=== PATIENT | male | born 1960 | race Caucasian/White ===

== ENCOUNTER → 2017-03-01 | Outpatient (CLI) | payer SELFPAY | END | disposition home or self-care (01) | LOC: LAB.O 07:42 | PROVIDERS: ATTEND Nurse Practitioner Family | DX: I48.91 Unspecified atrial fibrillation (principal) ==

== ENCOUNTER → 2017-05-09 | Outpatient (CLI) | payer SELFPAY | END | disposition home or self-care (01) | LOC: YCFC.O 08:27 | PROVIDERS: ATTEND Nurse Practitioner Family | DX: I48.91 Unspecified atrial fibrillation (principal); E78.5 Hyperlipidemia, unspecified; I10 Essential (primary) hypertension; Z12.5 Encounter for screening for malignant neoplasm of prostate; R73.01 Impaired fasting glucose ==

== ENCOUNTER 2017-08-07 12:44 | Emergency (ER) | payer SELFPAY ==
--- NOTE | 2017-08-07 13:34 | ED.PDOC ---
History of Present Illness - General Chief Complaint: Allergic Reaction Time Seen by Provider: 08/07/17 13:30 Source: patient Additional Information: 56 YEAR OLD PRESENTS WITH SWELLING OF HIS TONGUE STARTED THIS MORNING AT AROUND 8 AM HE HAS NO DIFFICULTY BREATHING OR SWALLOWING AT THIS TIME HE IS ON LISINOPRIL FOR SEVERAL YEARS' - History of Present Illness Timing/Duration: 4-6 hours Severity: moderate Improving Factors: nothing Associated Symptoms: denies symptoms Allergies/Adverse Reactions: Allergies NO KNOWN ALLERGY Allergy (Verified 02/21/16 07:11) Home Medications: Ambulatory Orders Digoxin [Lanoxin] 0.25 mg PO DAILY #0 tab 11/14/13 Hydroxyzine HCl 25 mg PO Q6H PRN #30 tab 02/21/16 Aspirin [(None)] 325 mg PO DAILY 08/07/17 Lisinopril 10 mg PO QAM 08/07/17 Methylprednisolone [Medrol Dose Tima] 4 mg PO DAILY@0700 #24 tab 08/07/17 amLODIPine BESYLATE [Norvasc] 5 mg PO QAM #30 tab 08/07/17 Review of Systems - Review of Systems Constitutional: States: no symptoms reported, see HPI EENTM: States: no symptoms reported Respiratory: States: no symptoms reported Cardiology: States: no symptoms reported Gastrointestinal/Abdominal: States: no symptoms reported Genitourinary: States: no symptoms reported Musculoskeletal: States: no symptoms reported Skin: States: no symptoms reported Neurological: States: no symptoms reported, emotional problems Endocrine: States: no symptoms reported Hematologic/Lymphatic: States: no symptoms reported All other Systems: Reviewed and Negative Past Medical History (General) - Patient Medical History Hx Seizures: No Hx Stroke: No Hx Dementia: No Hx Asthma: Yes Hx of COPD: No Hx Cardiac Disorders: Yes - a-fib Hx Congestive Heart Failure: Yes Hx Pacemaker: No Hx Hypertension: Yes Hx Thyroid Disease: No Hx Diabetes: No Hx Gastroesophageal Reflux: No Hx Renal Disease: No Hx Cancer: No Hx of HIV: No Hx Hepatitis C: No Hx MRSA: No - Vaccination History Hx Tetanus, Diphtheria Vaccination: No Hx Influenza Vaccination: Yes Hx Pneumococcal Vaccination: Yes - Social History Hx Tobacco Use: Yes Hx Alcohol Use: Yes Hx Substance Use: No Hx Substance Use Treatment: No Hx Depression: No Hx Physical Abuse: No Hx Emotional Abuse: No - Female History Patient : No Family Medical History - Family History Father Living Status: Age at (years of age): 34 Cause of : blunt head trama Hx Cardiac Disease: Yes Hx Family;Other: kidney disease Paternal Grandparents Living Status: Cause of : kidney disease Grandparents Living Status: Hx Cardiac Disease: Yes Mother Family History: Unknown Living Status: Still Living Hx Cardiac Disease: Yes Physical Exam - Physical Exam General Appearance: Alert, Obvious distress Eye Exam: bilateral normal Ears, Nose, Throat: hearing grossly normal, normal ENT inspection - HE HAS SIGNIFICANT SWELLING OF THE TONGUE BUT ABLE TO TALK NO OBVIOUS AIRWAY COMPROMISE AT THIS TIME Neck: non-tender, full range of motion, supple, normal inspection Respiratory: chest non-tender, lungs clear, normal breath sounds, no respiratory distress, no accessory muscle use Cardiovascular/Chest: normal peripheral pulses, regular rate, rhythm, no edema, no gallop, no JVD, no murmur Peripheral Pulses: radial,right: 2+, radial,left: 2+, femoral,right: 2+, femoral ,left: 2+ Gastrointestinal/Abdominal: normal bowel sounds, non tender, soft, no organomegaly, no pulsatile mass Progress - Progress Progress: 08/07/17 16:25 HE IS FEELING MUCH BETTER WANTS TO GO HOME WILL DC HOME SUGGEST TO STOP LISINOPRIL INSTEAD WILL GIVE NORVASC 10 MG PO Q DAY Departure - Departure Clinical Impression: Angioedema Time of Disposition: 16:26 Disposition: Discharge to Home or Self Care Condition: Good Departure Forms: ED Discharge - Pt. Copy, Patient Portal Self Enrollment Instructions: DI for Allergic Rhinitis Diet: resume usual diet Activity: increase activity as tolerated Referrals: Kimberlee Millan NP [Primary Care Provider] - 1-2 Weeks Prescriptions: amLODIPine BESYLATE [Norvasc] 5 mg PO QAM #30 tab Methylprednisolone [Medrol Dose Tima] 4 mg PO DAILY@0700 #24 tab Home Medications: Ambulatory Orders Digoxin [Lanoxin] 0.25 mg PO DAILY #0 tab 11/14/13 Hydroxyzine HCl 25 mg PO Q6H PRN #30 tab 02/21/16 Aspirin [(None)] 325 mg PO DAILY 08/07/17 Lisinopril 10 mg PO QAM 08/07/17 Methylprednisolone [Medrol Dose Tima] 4 mg PO DAILY@0700 #24 tab 08/07/17 amLODIPine BESYLATE [Norvasc] 5 mg PO QAM #30 tab 08/07/17
[2017-08-07] MEDS ORDERED: diphenhydrAMINE HCL 50 MG/ML VIAL IV ONE (13:37)
[2017-08-07] MEDS ORDERED: EPINEPHrine HCL AMP 1 MG/ML AMP SUBCU ONE (13:37)
[2017-08-07] MEDS ORDERED: methylPREDNISolone SODIUM SUC 125 MG/2 ML VIAL IV ONE (13:37)
[2017-08-07] MEDS ORDERED: FAMOTIDINE IV PREMIX 20 MG in PREMIX BAG 1 BAG IVPB ONE (13:37)
[2017-08-07] MEDS ORDERED: FAMOTIDINE IV PREMIX 50 ML IVPB ONE (13:45)
[2017-08-07 16:52] VITALS: BP 154/113; O2SAT 96
[2017-08-07 16:53] VITALS: TEMP 97.5
== END 2017-08-07 16:53 | disposition home or self-care (01) ==
LOC: ER 12:44
DX: T78.3XXA Angioneurotic edema, initial encounter (principal); I48.91 Unspecified atrial fibrillation; I11.0 Hypertensive heart disease with heart failure; I50.9 Heart failure, unspecified; Z87.891 Personal history of nicotine dependence; Z79.899 Other long term (current) drug therapy
CPT/HCPCS: J1200; J2930; J3490

== ENCOUNTER 2017-08-26 10:37 | Emergency (ER) | payer SELFPAY ==
--- NOTE | 2017-08-26 11:11 | ED.PDOC ---
History of Present Illness - General Chief Complaint: Respiratory Problem Stated Complaint: short of breath Time Seen by Provider: 08/26/17 11:08 Source: patient, RN notes reviewed Additional Information: 57 YEAR OLD OBESE MALE WITH LONG STANDING HISTORY OF ATRIAL FIBRILLATION HYPERTENSION PRESENTS WITH PALPITATIONS CHEST PAIN UPPER ABDOMINAL DISCOMFORT ALMOST NEAR SYNCOPE THIS MORNING HE HAS NOT BEEN TAKING HIS COUMADIN DISCONTINUED ON HIS OWN LAST 1 WEEK HIS HAS BEEN HAVING ORTHOPNEA AND NOCTURNAL DYSPNEA HE IS A CHRONIC SMOKER STILL SMOKES - History of Present Illness Timing/Duration: 1 hour Severity: moderate Improving Factors: nothing, rest Worsening Factors: movement Associated Symptoms: chest pain, weakness Allergies/Adverse Reactions: Allergies NO KNOWN ALLERGY Allergy (Verified 02/21/16 07:11) Home Medications: Ambulatory Orders Digoxin [Lanoxin] 0.25 mg PO DAILY #0 tab 11/14/13 Aspirin [(None)] 325 mg PO DAILY 08/07/17 amLODIPine BESYLATE [Norvasc] 5 mg PO QAM #30 tab 08/07/17 Furosemide [Lasix] 40 mg PO DAILY 08/26/17 Review of Systems - Review of Systems Constitutional: States: weakness EENTM: States: no symptoms reported Respiratory: States: short of breath Cardiology: States: chest pain, palpitations Gastrointestinal/Abdominal: States: no symptoms reported Genitourinary: States: no symptoms reported Musculoskeletal: States: no symptoms reported Skin: States: no symptoms reported Neurological: States: no symptoms reported Endocrine: States: no symptoms reported Hematologic/Lymphatic: States: no symptoms reported Past Medical History (General) - Patient Medical History Hx Seizures: No Hx Stroke: No Hx Dementia: No Hx Asthma: Yes Hx of COPD: No Hx Cardiac Disorders: Yes - a-fib Hx Congestive Heart Failure: Yes Hx Pacemaker: No Hx Hypertension: Yes Hx Thyroid Disease: No Hx Diabetes: No Hx Gastroesophageal Reflux: No Hx Renal Disease: No Hx Cancer: No Hx of HIV: No Hx Hepatitis C: No Hx MRSA: No Surgical History: other - Vaccination History Hx Tetanus, Diphtheria Vaccination: No Hx Influenza Vaccination: Yes Hx Pneumococcal Vaccination: Yes - Social History Hx Tobacco Use: Yes Hx Alcohol Use: Yes Hx Substance Use: No Hx Substance Use Treatment: No Hx Depression: No Hx Physical Abuse: No Hx Emotional Abuse: No - Female History Patient : No Family Medical History - Family History Father Living Status: Age at (years of age): 34 Cause of : blunt head trama Hx Cardiac Disease: Yes Hx Family;Other: kidney disease Paternal Grandparents Living Status: Cause of : kidney disease Grandparents Living Status: Hx Cardiac Disease: Yes Mother Family History: Unknown Living Status: Still Living Hx Cardiac Disease: Yes Physical Exam - Physical Exam General Appearance: Alert, Comfortable, Obese Eye Exam: right normal Ears, Nose, Throat: hearing grossly normal, normal ENT inspection, normal pharynx Neck: non-tender, full range of motion, supple Respiratory: chest non-tender, lungs clear, normal breath sounds, no respiratory distress Cardiovascular/Chest: normal peripheral pulses, no murmur, irregularly irregular Peripheral Pulses: radial,right: 2+, radial,left: 2+, femoral,right: 2+, femoral ,left: 2+ Gastrointestinal/Abdominal: non tender, soft Neurologic: metal solderer II-XII nml as tested, no motor/sensory deficits, alert, normal mood/affect, oriented x 3 Skin Exam: normal color, warm/dry Departure - Departure Clinical Impression: Atrial fibrillation with RVR, Congestive heart failure Time of Disposition: 12:20 Disposition: Transfer to Hospital Condition: Fair Departure Forms: ED Discharge - Pt. Copy, Patient Portal Self Enrollment Referrals: Kimberlee Millan NP [Primary Care Provider] - 1-2 Weeks Home Medications: Ambulatory Orders Digoxin [Lanoxin] 0.25 mg PO DAILY #0 tab 11/14/13 Aspirin [(None)] 325 mg PO DAILY 08/07/17 amLODIPine BESYLATE [Norvasc] 5 mg PO QAM #30 tab 08/07/17 Furosemide [Lasix] 40 mg PO DAILY 08/26/17 Transfer to Outside Facility - Transfer Information Accepting Facility: [facility] Reason for Transfer: specialized care not available - ATRIAL FIB WITH RVR NON COMPLIANCE TROPONIN LEAK
--- NOTE | 2017-08-26 11:19 | RAD ---
EXAM DESCRIPTION: Chest,1 View CLINICAL HISTORY: shortness of breath COMPARISON: March 17, 2016 IMPRESSION: Single AP portable upright view of the chest shows continued enlargement of the cardiac silhouette with increased prominence of the pulmonary vascularity suggesting mild congestive heart failure or pulmonary vascular congestion. Lungs are hypoaerated. No acute appearing consolidation is seen. Postsurgical changes to lower thoracic and lumbar spine are noted. No obvious pleural effusion or pneumothorax is seen. Electronically signed by: Ted Mock MD 08/26/2017 11:18 AM [facility]
[2017-08-26] MEDS ORDERED: diltiaZEM DRIP 125 MG/25 ML VIAL IVPB ONE (11:46)
[2017-08-26] MEDS ORDERED: SODIUM CHLORIDE 0.9% 100ML 100 ML IVPB ONE (11:46)
[2017-08-26] MEDS: diltiaZEM DRIP 125 MG in SODIUM CHLORIDE 0.9% 100ML 100 ML IVPB SCH (11:55)
[2017-08-26 14:16] VITALS: O2SAT 96
[2017-08-26] MEDS ORDERED: ENOXAPARIN SODIUM 80 MG/0.8 ML SYG SUBCU ONE (14:34)
[2017-08-26] MEDS ORDERED: ENOXAPARIN SODIUM 40 MG/0.4 ML SYG SUBCU ONE (14:34)
[2017-08-26 15:04] VITALS: TEMP 96.5
[2017-08-27 15:41] VITALS: BP 123/94
== END 2017-08-26 15:11 | disposition short-term general hospital (02) ==
LOC: ER 10:37
DX: I48.91 Unspecified atrial fibrillation (principal); I11.0 Hypertensive heart disease with heart failure; I50.9 Heart failure, unspecified; J45.909 Unspecified asthma, uncomplicated; Z79.82 Long term (current) use of aspirin; Z79.899 Other long term (current) drug therapy; F17.200 Nicotine dependence, unspecified, uncomplicated; Z91.14 Patient's other noncompliance with medication regimen
CPT/HCPCS: 36415; 71045; 80048; 82550; 82553; 83880; 84484; 85025; 85610; 85730; 93005; J1650; J7050

== ENCOUNTER → 2017-10-26 | Outpatient (CLI) | payer OTHER | LOC: YCFC.O 08:10 | PROVIDERS: ATTEND Nurse Practitioner Family | DX: I48.91 Unspecified atrial fibrillation (principal) ==

== ENCOUNTER 2017-11-01 17:48 | Emergency (ER) | payer SELFPAY ==
[2017-11-01 18:33] VITALS: TEMP 98.2; O2SAT 96
[2017-11-01] MEDS ORDERED: ORPHENADRINE CITRATE 30 MG/ML AMP IM ONE (19:21)
[2017-11-01] MEDS ORDERED: KETOROLAC TROMETHAMINE INJ 30 MG/ML VIAL IV ONE (19:22)
--- NOTE | 2017-11-01 19:36 | ED.PDOC ---
History of Present Illness - General Chief Complaint: Upper Extremity Injury Stated Complaint: left shoulder pain radiating down arm Time Seen by Provider: 11/01/17 18:35 Source: patient, RN notes reviewed, Vital Signs reviewed - History of Present Illness Occurred: this morning Pain - Upper Extremity: moderate: Shoulder, right Method of Injury: other - excess use the day prior on boat Improving Factors: rest Worsening Factors: movement Allergies/Adverse Reactions: Allergies NO KNOWN ALLERGY Allergy (Verified 02/21/16 07:11) Home Medications: Ambulatory Orders Digoxin [Lanoxin] 0.25 mg PO DAILY #0 tab 11/14/13 Aspirin [(None)] 325 mg PO DAILY 08/07/17 amLODIPine BESYLATE [Norvasc] 5 mg PO QAM #30 tab 08/07/17 Furosemide [Lasix] 40 mg PO DAILY 08/26/17 Ketorolac Tromethamine [Toradol Tabs] 10 mg PO Q6HR PRN 5 Days #20 tab 11/01/17 Orphenadrine Citrate [Orphenadrine Citrate ER] 100 mg PO BID PRN #20 tab Review of Systems - Review of Systems Constitutional: States: no symptoms reported EENTM: States: no symptoms reported Respiratory: States: no symptoms reported. Denies: cough, orthopnea, short of breath, stridor, wheezing Cardiology: States: no symptoms reported. Denies: chest pain, edema, palpitations, syncope Gastrointestinal/Abdominal: States: no symptoms reported. Denies: abdominal pain, constipation, diarrhea, nausea, vomiting Genitourinary: States: no symptoms reported Musculoskeletal: States: joint pain, muscle pain, muscle stiffness Skin: States: no symptoms reported Neurological: States: no symptoms reported Endocrine: States: no symptoms reported Past Medical History (General) - Patient Medical History Hx Seizures: No Hx Stroke: No Hx Dementia: No Hx Asthma: Yes Hx of COPD: No Hx Cardiac Disorders: Yes - a-fib Hx Congestive Heart Failure: Yes Hx Pacemaker: No Hx Hypertension: Yes Hx Thyroid Disease: No Hx Diabetes: No Hx Gastroesophageal Reflux: No Hx Renal Disease: No Hx Cancer: No Hx of HIV: No Hx Hepatitis C: No Hx MRSA: No Surgical History: other - Vaccination History Hx Tetanus, Diphtheria Vaccination: No Hx Influenza Vaccination: Yes Hx Pneumococcal Vaccination: Yes - Social History Hx Tobacco Use: Yes Hx Alcohol Use: Yes Hx Substance Use: No Hx Substance Use Treatment: No Hx Depression: No Hx Physical Abuse: No Hx Emotional Abuse: No - Female History Patient : No Family Medical History - Family History Father Living Status: Age at (years of age): 34 Cause of : blunt head trama Hx Cardiac Disease: Yes Hx Family;Other: kidney disease Paternal Grandparents Living Status: Cause of : kidney disease Grandparents Living Status: Hx Cardiac Disease: Yes Mother Family History: Unknown Living Status: Still Living Hx Cardiac Disease: Yes Physical Exam - Physical Exam General Appearance: Alert, No apparent distress, Well Developed, Well Groomed, Well Hydrated, Well Nourished Eyes, Ears, Nose, Throat Exam: PERRL/EOMI, normal ENT inspection, TMs normal Neck: non-tender, full range of motion, supple, normal inspection, other - no bruit, no pain over vascular structures Cardiovascular/Respiratory: regular rate, rhythm, no M/R/G, normal peripheral pulses, no JVD, normal breath sounds, no respiratory distress Abdominal Exam: non-tender, no organomegaly, no hernia Back Exam: normal inspection, no CVA tenderness, no vertebral tenderness Shoulder Exam: normal inspection, limited ROM, pain, soft tissue tenderness Elbow/Forearm Exam: normal inspection, non-tender, no evidence of injury, normal ROM Wrist Exam: normal inspection, non-tender, no evidence of injury, normal ROM Hand Exam: normal inspection, non-tender, no evidence of injury, normal ROM Neuro/Tendon: normal sensation, normal motor functions - limited at shoulder due to pain, normal tendon functions - limited at shoulder due to pain Mental Status: alert, oriented x 3 Skin Exam: normal color, warm/dry Departure - Departure Clinical Impression: Sprain and strain of shoulder and upper arm Time of Disposition: 20:34 Disposition: Discharge to Home or Self Care Condition: Good Departure Forms: ED Discharge - Pt. Copy, Patient Portal Self Enrollment Instructions: DI for Arm Pain Diet: resume usual diet Activity: increase activity as tolerated Referrals: Kimberlee Millan NP [Primary Care Provider] - 1-2 Weeks Prescriptions: Ketorolac Tromethamine [Toradol Tabs] 10 mg PO Q6HR PRN 5 Days #20 tab PRN Reason: Pain Orphenadrine Citrate [Orphenadrine Citrate ER] 100 mg PO BID PRN #20 tab PRN Reason: Pain -- Moderate Home Medications: Ambulatory Orders Digoxin [Lanoxin] 0.25 mg PO DAILY #0 tab 11/14/13 Aspirin [(None)] 325 mg PO DAILY 08/07/17 amLODIPine BESYLATE [Norvasc] 5 mg PO QAM #30 tab 08/07/17 Furosemide [Lasix] 40 mg PO DAILY 08/26/17 Ketorolac Tromethamine [Toradol Tabs] 10 mg PO Q6HR PRN 5 Days #20 tab 11/01/17 Orphenadrine Citrate [Orphenadrine Citrate ER] 100 mg PO BID PRN #20 tab
--- NOTE | 2017-11-01 19:44 | RAD ---
PROCEDURE: Shoulder,Right 2 or More Views Clinical History: shoulder pain Indication: Same as above Comparison: None . Technique: 2.0 views of the right shoulder were done. Findings: There is no visualization of acute fractures or dislocations involving the bones of the right shoulder joint. There is no evidence of periosteal reactions involving the bones of the shoulder joint. The adjacent acromioclavicular joint shows mild degenerative change. The acromiohumeral distance is well-maintained . There is no evidence of rotator cuff calcific tendinitis. The visualized adjacent ribs do not show any evidence of acute bony trauma. Limited evaluation of the adjacent clavicle, scapula and the acromioclavicular joint does not show any evidence of acute bony trauma. The visualized lung robins are radiographically unremarkable. The adjacent soft tissues are radiographically unremarkable. There is no visualization of any radiopaque foreign bodies in the soft tissues. Impression: Mild degenerative changes in the right AC joint . Place of interpretation: [id number]. Electronically signed by: Basil Henriquez MD 11/01/2017 7:43 PM CDT Workstation: [id number]
[2017-11-01] MEDS ORDERED: POTASSIUM CHLORIDE 20 MEQ TAB PO ONE (20:17)
[2017-11-01] MEDS ORDERED: traMADol HCL 50 MG (ER DISP) # 6 TABS PO ONE (20:47)
[2017-11-01 20:54] VITALS: BP 174/98
== END 2017-11-01 20:58 | disposition home or self-care (01) ==
LOC: ER 17:48
DX: S43.409A Unspecified sprain of unspecified shoulder joint, initial encounter (principal); I48.91 Unspecified atrial fibrillation; I11.0 Hypertensive heart disease with heart failure; I50.9 Heart failure, unspecified; Z87.891 Personal history of nicotine dependence; Z79.82 Long term (current) use of aspirin; X50.3XXA Overexertion from repetitive movements, initial encounter; X50.1XXA Overexertion from prolonged static or awkward postures, initial encounter; Y92.89 Other specified places as the place of occurrence of the external cause
CPT/HCPCS: 36415; 73030; 80053; 82550; 82553; 84484; 85025; J1885; J2360

== ENCOUNTER → 2018-03-16 | Outpatient (CLI) | payer SELFPAY | LOC: LAB.O 01-17 08:09 | PROVIDERS: ATTEND Nurse Practitioner Family | DX: I48.91 Unspecified atrial fibrillation (principal) ==

== ENCOUNTER → 2019-02-16 | Outpatient (CLI) | payer OTHER | LOC: LAB.O 07:51 | PROVIDERS: ATTEND Nurse Practitioner Family | DX: I48.91 Unspecified atrial fibrillation (principal) ==

== ENCOUNTER → 2019-02-20 | Outpatient (CLI) | payer SELFPAY | LOC: YCFC.O 12:04 | PROVIDERS: ATTEND Nurse Practitioner Family | DX: E78.5 Hyperlipidemia, unspecified (principal); I48.91 Unspecified atrial fibrillation; I10 Essential (primary) hypertension ==

== ENCOUNTER → 2019-03-06 | Outpatient (CLI) | payer SELFPAY | LOC: YCFC.O 11:21 | PROVIDERS: ATTEND Nurse Practitioner Family | DX: I48.91 Unspecified atrial fibrillation (principal) ==

== ENCOUNTER → 2019-03-27 | Outpatient (CLI) | payer SELFPAY | LOC: LAB.O 09:22 | PROVIDERS: ATTEND Nurse Practitioner Family | DX: I48.91 Unspecified atrial fibrillation (principal) ==

== ENCOUNTER → 2019-04-27 | Outpatient (CLI) | payer SELFPAY | LOC: YCFC.O 12:46 | PROVIDERS: ATTEND Nurse Practitioner Family | DX: I48.91 Unspecified atrial fibrillation (principal) ==

== ENCOUNTER 2019-06-28 18:49 | Inpatient (IN) | payer SELFPAY ==
--- NOTE | 2019-06-28 19:07 | ED.PDOC ---
History of Present Illness - General Chief Complaint: Neuro Symptoms/Deficits Stated Complaint: Dizziness Time Seen by Provider: 06/28/19 19:04 Source: patient Exam Limitations: no limitations - History of Present Illness Initial Comments: 58 yo M with PMH sig for CHF, a fib, HTN who presents for SOB, [place], orthopnea, BLE edema onset yesterday, worsening today. Reports compliance with lasix, diet, digoxin. Reports associated falls 2/2 lightheadedness when standing. Cp since this afternoon, throbbing, midsternal, constant, no radiation. +chornic cough, pt is smoker. Denies f/c, congestion, abd pain, n/v/d, urinary sx, weakness, numbness, CHRISTIAN, change in vision, slurred speech. Allergies/Adverse Reactions: Allergies NO KNOWN ALLERGY Allergy (Verified 02/21/16 07:11) Home Medications: Ambulatory Orders Digoxin [Lanoxin] 0.25 mg PO DAILY #0 tab 11/14/13 Aspirin [(None)] 325 mg PO DAILY 08/07/17 amLODIPine BESYLATE [Norvasc] 5 mg PO QAM #30 tab 08/07/17 Furosemide [Lasix] 40 mg PO DAILY 08/26/17 Ketorolac Tromethamine [Toradol Tabs] 10 mg PO Q6HR PRN 5 Days #20 tab 11/01/17 Orphenadrine Citrate [Orphenadrine Citrate ER] 100 mg PO BID PRN #20 tab 11/01/17 Review of Systems - Review of Systems Constitutional: Denies: chills, fever EENTM: Denies: ear pain, nose congestion Respiratory: States: cough - chronic, orthopnea, short of breath Cardiology: States: chest pain, edema. Denies: palpitations, syncope Gastrointestinal/Abdominal: Denies: abdominal pain, diarrhea, nausea, vomiting Genitourinary: Denies: dysuria, frequency, hematuria Musculoskeletal: Denies: back pain, neck pain Skin: Denies: lesions, rash Neurological: States: other - lightheadedness. Denies: headache, numbness, weakness Past Medical History (General) - Patient Medical History Hx Seizures: No Hx Stroke: No Hx Dementia: No Hx Asthma: Yes Hx of COPD: No Hx Cardiac Disorders: Yes - a-fib Hx Congestive Heart Failure: Yes Hx Pacemaker: No Hx Hypertension: Yes Hx Thyroid Disease: No Hx Diabetes: No Hx Gastroesophageal Reflux: No Hx Renal Disease: No Hx Cancer: No Hx of HIV: No Hx Hepatitis C: No Hx MRSA: No - Vaccination History Hx Tetanus, Diphtheria Vaccination: No Hx Influenza Vaccination: Yes Hx Pneumococcal Vaccination: Yes - Social History Hx Tobacco Use: Yes Hx Alcohol Use: Yes Hx Substance Use: No Hx Substance Use Treatment: No Hx Depression: No Hx Physical Abuse: No Hx Emotional Abuse: No - Female History Patient : No Family Medical History - Family History Father Living Status: Age at (years of age): 34 Cause of : blunt head trama Hx Cardiac Disease: Yes Hx Family;Other: kidney disease Paternal Grandparents Living Status: Cause of : kidney disease Grandparents Living Status: Hx Cardiac Disease: Yes Mother Family History: Unknown Living Status: Still Living Hx Cardiac Disease: Yes Physical Exam - Physical Exam General Appearance: Alert, Comfortable, No apparent distress, Obese, Well Developed, Well Nourished Eye Exam: bilateral normal Ears, Nose, Throat: hearing grossly normal, normal ENT inspection Neck: non-tender, full range of motion, supple Respiratory: chest non-tender, no respiratory distress, no accessory muscle use, decreased breath sounds - bases Cardiovascular/Chest: normal peripheral pulses, no gallop, no JVD, no murmur, irregularly irregular, other - rate wnl Peripheral Pulses: radial,right: 2+, radial,left: 2+ Gastrointestinal/Abdominal: non tender, soft, no organomegaly, no pulsatile mass Extremity: normal range of motion, normal capillary refill, pedal edema - 2+ pitting edema, symmetric BLE Neurologic: no motor/sensory deficits, alert, normal mood/affect, oriented x 3 Skin Exam: normal color, warm/dry Progress - Progress Progress: 06/28/19 20:16 Discussed with Yael midlevel for hospitalist, requests repeat troponin, if wnl, will accept for admission. 06/28/19 22:10 Pt stood up to urinate and requested family step out, during that time pt fell onto his L side, complaining of lower back pain at this time with abrasion noted to L forearm, denies hitting his head. Pt is unsure why he fell, there was noted to be something wet on the floor, ?urine, pt denied any sx prior to the fall. Good urine outpt since lasix dose. Discussed with Yael and updated on repeat troponin and fall, L spine pending, accepts pt for admission and will follow up on CT. 06/28/19 22:16 Discussed with pt results and need for admission, agrees with plan, all questions and concerns addressed. Raven White MD Emergency Medicine Physician Billing Number [id number] - Results/Orders Results/Orders: 06/28/19 19:15 EKG STAT 06/28/19 22:04 Lumbar Spine [CT] Stat 06/28/19 22:14 ED Intent to Admit Routine Laboratory Results - last 24 hr 06/28/19 06/28/19 06/28/19 19:17 19:17 19:17 WBC 10.7 RBC 5.94 Hgb 17.8 Hct 54.2 H MCV 91.3 MCH 30.0 MCHC 32.9 L RDW 15.0 H Plt Count 184 MPV 10.4 Absolute Neuts (auto) 7.90 H Absolute Lymphs (auto) 1.40 Absolute Monos (auto) 0.60 Absolute Eos (auto) 0.60 H Absolute Basos (auto) 0.10 Neutrophils % 74.2 Lymphocytes % 13.5 L Monocytes % 5.4 Eosinophils % 6.0 H Basophils % 0.9 PT INR PTT (SP) Sodium 140 Potassium 3.3 L Chloride 98 L Carbon Dioxide 30 Anion Gap 15.3 BUN 17 Creatinine 1.19 BUN/Creatinine Ratio 14.3 Random Glucose 174 H Serum Osmolality 285.1 Calcium 9.3 Phosphorus Magnesium Total Bilirubin 0.4 AST 19 ALT 14 Alkaline Phosphatase 75 Troponin I 0.05 B-Natriuretic Peptide Serum Total Protein 7.2 Albumin 3.6 Globulin 3.6 H Albumin/Globulin Ratio 1.0 L Digoxin 06/28/19 06/28/19 06/28/19 19:17 19:17 19:17 WBC RBC Hgb Hct MCV MCH MCHC RDW Plt Count MPV Absolute Neuts (auto) Absolute Lymphs (auto) Absolute Monos (auto) Absolute Eos (auto) Absolute Basos (auto) Neutrophils % Lymphocytes % Monocytes % Eosinophils % Basophils % PT 14.0 H INR 1.40 H PTT (SP) 26.8 Sodium Potassium Chloride Carbon Dioxide Anion Gap BUN Creatinine BUN/Creatinine Ratio Random Glucose Serum Osmolality Calcium Phosphorus 1.9 L* Magnesium 1.7 L Total Bilirubin AST ALT Alkaline Phosphatase Troponin I B-Natriuretic Peptide 235.0 H* Serum Total Protein Albumin Globulin Albumin/Globulin Ratio Digoxin 0.8 L 06/28/19 21:27 WBC RBC Hgb Hct MCV MCH MCHC RDW Plt Count MPV Absolute Neuts (auto) Absolute Lymphs (auto) Absolute Monos (auto) Absolute Eos (auto) Absolute Basos (auto) Neutrophils % Lymphocytes % Monocytes % Eosinophils % Basophils % PT INR PTT (SP) Sodium Potassium Chloride Carbon Dioxide Anion Gap BUN Creatinine BUN/Creatinine Ratio Random Glucose Serum Osmolality Calcium Phosphorus Magnesium Total Bilirubin AST ALT Alkaline Phosphatase Troponin I 0.05 B-Natriuretic Peptide Serum Total Protein Albumin Globulin Albumin/Globulin Ratio Digoxin CXR: EXAM DESCRIPTION: XR Chest, 2 Views CLINICAL HISTORY: 58 years Male sob TECHNIQUE: Two views of the chest. COMPARISON: Comparison is made with the prior exam dated 08/26/2017 FINDINGS: The lungs are clear without focal consolidation, effusion, or pneumothorax. Mild elevation of the right hemidiaphragm. Mild cardiomegaly without evidence of congestive failure. Postsurgical changes in the lower thoracic spine. No acute fracture. IMPRESSION : No acute cardiopulmonary abnormalities. Mild cardiomegaly. Electronically signed by: Reina Willis MD 06/28/2019 8:00 PM LONG TERM CARE SOCIAL WORKER Workstation: [id number] CT head: PROCEDURE: CT Head CLINICAL HISTORY: 58 years Male fall, dizziness TECHNIQUE: Contiguous axial CT images obtained through the brain without IV contrast. This CT exam was performed according to our departmental dose-optimization program, which includes one or more of the following dose reduction techniques: automated exposure control, adjustment of the mA and/or kV according to patient size, and/or use of iterative reconstruction technique. COMPARISON: No prior exams provided for comparison. FINDINGS: There is no acute skull fracture, intracranial hemorrhage, extraaxial collection, or acute transcortical infarction. Scattered foci of low attenuation within the periventricular and subcortical white matter are nonspecific but compatible with chronic microvascular disease. The ventricles are normal in size and contour without mass effect or midline shift. Mild bilateral ethmoid sinusitis. The remainder of the paranasal sinuses and mastoid air cells are clear. Intraorbital structures intact bilaterally. IMPRESSION: No acute intracranial injury. Mild chronic microvascular changes. Mild bilateral ethmoid sinusitis. Electronically signed by: Reina Willis MD 06/28/2019 7:59 PM LONG TERM CARE SOCIAL WORKER L spine XR: EXAM DESCRIPTION: Lumbar Spine 3 Views CLINICAL HISTORY: fall COMPARISON: None FINDINGS: 3 view(s) submitted. The bones are very osteopenic which limits detail. Paraspinal hardware appears intact. There is height loss of multiple lower thoracic vertebral bodies but detail is very limited. IMPRESSION: CT would be required to detect acute fractures as the bones are severely osteopenic. Alignment is normal. There are degenerative changes. Electronically signed by: Jarett Ocampochase 06/28/2019 9:52 PM LONG TERM CARE SOCIAL WORKER L spine CT: pending, Yael will follow up Vital Signs - 24 hr 06/28/19 06/28/19 06/28/19 19:06 19:07 20:42 Temperature 96.3 F L 97.1 F L Pulse Rate 68 Pulse Rate [ 68 68 70 brachial] Respiratory 18 18 18 Rate Blood Pressure 185/113 165/112 [Right Arm] O2 Sat by Pulse 94 L 97 Oximetry 06/28/19 06/28/19 21:00 22:00 Temperature 97.9 F Pulse Rate Pulse Rate [ 66 65 brachial] Respiratory 20 20 Rate Blood Pressure 166/109 169/116 [Right Arm] O2 Sat by Pulse 96 99 Oximetry - EKG/XRAY/CT EKG: Atrial, Fibrillation, nonspecific ST T wave Chg Comments: PVC or aberrantly conducted complexes, LVH Departure - Departure Clinical Impression: Lightheadedness, Abrasion, Subtherapeutic international normalized ratio (INR) Volume overload Qualifiers: Hypervolemia type: unspecified Qualified Code(s): E87.70 - Fluid overload, unspecified Fall Qualifiers: Encounter type: initial encounter Qualified Code(s): W19.XXXA - Unspecified fall, initial encounter Low back pain Qualifiers: Chronicity: acute Back pain laterality: bilateral Sciatica presence: without sciatica Qualified Code(s): M54.5 - Low back pain Time of Disposition: 22:15 Disposition: Admit Patient Condition: Fair Referrals: Mendoza Ma MD [Primary Care Provider] - 1-2 Weeks Home Medications: Ambulatory Orders Digoxin [Lanoxin] 0.25 mg PO DAILY #0 tab 11/14/13 Aspirin [(None)] 325 mg PO DAILY 08/07/17 amLODIPine BESYLATE [Norvasc] 5 mg PO QAM #30 tab 08/07/17 Furosemide [Lasix] 40 mg PO DAILY 08/26/17 Ketorolac Tromethamine [Toradol Tabs] 10 mg PO Q6HR PRN 5 Days #20 tab 11/01/17 Orphenadrine Citrate [Orphenadrine Citrate ER] 100 mg PO BID PRN #20 tab 11/01/17
[2019-06-28] MEDS ORDERED: FUROSEMIDE INJ 40 MG/4 ML VIAL IV ONE (19:13)
--- NOTE | 2019-06-28 20:04 | RAD ---
EXAM DESCRIPTION: XR Chest, 2 Views CLINICAL HISTORY: 58 years Male sob TECHNIQUE: Two views of the chest. COMPARISON: Comparison is made with the prior exam dated 08/26/2017 FINDINGS: The lungs are clear without focal consolidation, effusion, or pneumothorax. Mild elevation of the right hemidiaphragm. Mild cardiomegaly without evidence of congestive failure. Postsurgical changes in the lower thoracic spine. No acute fracture. IMPRESSION: No acute cardiopulmonary abnormalities. Mild cardiomegaly. Electronically signed by: Reina Willis MD 06/28/2019 8:00 PM SECURITY ASSISTANT
--- NOTE | 2019-06-28 20:04 | CT ---
PROCEDURE: CT Head CLINICAL HISTORY: 58 years Male fall, dizziness TECHNIQUE: Contiguous axial CT images obtained through the brain without IV contrast. This CT exam was performed according to our departmental dose-optimization program, which includes one or more of the following dose reduction techniques: automated exposure control, adjustment of the mA and/or kV according to patient size, and/or use of iterative reconstruction technique. COMPARISON: No prior exams provided for comparison. FINDINGS: There is no acute skull fracture, intracranial hemorrhage, extraaxial collection, or acute transcortical infarction. Scattered foci of low attenuation within the periventricular and subcortical white matter are nonspecific but compatible with chronic microvascular disease. The ventricles are normal in size and contour without mass effect or midline shift. Mild bilateral ethmoid sinusitis. The remainder of the paranasal sinuses and mastoid air cells are clear. Intraorbital structures intact bilaterally. IMPRESSION: No acute intracranial injury. Mild chronic microvascular changes. Mild bilateral ethmoid sinusitis. Electronically signed by: Reina Willis MD 06/28/2019 7:59 PM [employer] SET UP OPERATOR
[2019-06-28] MEDS ORDERED: POTASSIUM PHOSPHATE 500 MG TAB PO ONE (20:25)
[2019-06-28] MEDS ORDERED: TETANUS,DIPHTHERIA,PERTUSSIS 1 EA SYG IM ONE (20:33)
[2019-06-28] MEDS ORDERED: KETOROLAC TROMETHAMINE INJ 30 MG/ML VIAL IV ONE (21:52)
--- NOTE | 2019-06-28 21:53 | RAD ---
EXAM DESCRIPTION: Lumbar Spine 3 Views CLINICAL HISTORY: fall COMPARISON: None FINDINGS: 3 view(s) submitted. The bones are very osteopenic which limits detail. Paraspinal hardware appears intact. There is height loss of multiple lower thoracic vertebral bodies but detail is very limited. IMPRESSION: CT would be required to detect acute fractures as the bones are severely osteopenic. Alignment is normal. There are degenerative changes. Electronically signed by: Jarett Degroot 06/28/2019 9:52 PM [facility]
[2019-06-28] MEDS ORDERED: ASPIRIN (CHEWABLE) 81 MG TAB PO ONE (22:14)
--- NOTE | 2019-06-28 23:04 | CT ---
EXAM DESCRIPTION: CT LUMBAR SPINE WITHOUT CONTRAST CLINICAL HISTORY: 58 years Male pain, fall COMPARISON: Lumbar spine radiograph of the same day TECHNIQUE: Multiplanar imaging through the lumbar spine without contrast. This exam was performed according to our departmental dose-optimization program, which includes automated exposure control, adjustment of the mA and/or kV according to patient size and/or use of iterative reconstruction technique. DLP: 744 mGy*cm FINDINGS: No acute fracture. Remote fracture deformity of the L1 vertebral body with minimal retropulsion and approximately 50-60% vertebral body height loss. Prior posterior instrumented fusion from T11 to L3. Small retrolisthesis of L5 on S1. L5-S1 disc space narrowing and vacuum phenomenon. Diffuse osteopenia. Lower lumbar facet arthropathy. Paraspinal soft tissues are within normal limits. Visualized abdomen demonstrates no acute abnormality. Vascular calcifications. Nonobstructive bilateral renal stones. IMPRESSION: No acute lumbar spine fracture or subluxation. Remote L1 compression fracture with prior T11-L3 posterior instrumented fusion. Diffuse osteopenia and lower lumbar degenerative changes. Electronically signed by: Antony Kline DO 06/28/2019 11:01 PM [facility]
[2019-06-28] MEDS ORDERED: NITROGLYCERIN 0.4 MG 25 EA TAB SL ONE ×2 (23:13)
--- NOTE | 2019-06-28 23:53 | HP ---
SUPERVISING PHYSICIAN: Herb Roland M.D. CHIEF COMPLAINT: Fall and dizziness. HISTORY OF PRESENT ILLNESS: This is a 58 year-old male patient who reported that he had multiple falls on the day he came to the Emergency Room. He actually fell outside his house, one time in the bathroom, another time on his porch, and then in the Emergency Room. There were no obvious injuries. He did not lose consciousness. He did complain of feeling dizzy and light-headed and he has never had these symptoms in the past. Yesterday, he also had some increase in his lower leg edema. He does have a history of congestive heart failure as well as atrial fibrillation. He also has a history of poor compliance with his digoxin and his Coumadin. Initially he felt like he had some chest pain but he felt that that was more shortness of breath. It did not radiate or did not worsen with exertion. In the Emergency Room, his initial vital signs showed temperature 96.3, heart rate 68, blood pressure 185/113, respiratory rate 18, O2 saturation 94% on room air. His EKG showed atrial fibrillation with a controlled rate. Laboratory studies were done. He had a CBC that was basically unremarkable. His INR was subtherapeutic at 1.4. He is on Coumadin. Sodium 140, potassium 3.3, chloride 98, glucose 174, phosphorus 1.9, magnesium 1.7. BNP was 235. His initial troponin was 0.05. He had a followup troponin that was 0.05. Chest x-ray showed no acute cardiopulmonary abnormalities with mild cardiomegaly. Head CT showed no acute intracranial injury. Lumbar spine x-ray recommended a CT to detect acute fractures due to his bones being severely osteopenic. Lumbar spine CT showed no acute lumbar spine fracture or subluxation, just a remote L1 compression fracture with prior T11-L3 posterior instrumented fusion with diffuse osteopenia and lower lumbar degenerative changes. I was called for hospital admission. PAST MEDICAL HISTORY: 1. Hyperlipidemia. 2. Hypertension. 3. Atrial fibrillation. 4. Chronic obstructive pulmonary disease. 5. Degenerative joint disease. 6. Chronic low back pain. 7. Impaired fasting glucose. 8. Congestive heart failure of unknown etiology. There is no current echocardiogram to review. PAST SURGICAL HISTORY: 1. L4 reconstruction surgery. 2. Tonsillectomy. 3. Left hand surgery. OUTPATIENT MEDICATIONS: 1. Albuterol HFA. 2. Digoxin. 3. Furosemide. 4. Metoprolol. 5. Warfarin. 6. Potassium. ALLERGIES: ADVERSE REACTION TO AMOXICILLIN WHICH CAUSES DIARRHEA. HE HAS AN ALLERGY TO LISINOPRIL IT CAUSES ANGIOEDEMA. 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 He is . He lives alone. He has 1 child. He smokes approximately 1/2 pack of cigarettes daily. He has a previous history of excessive alcohol intake but he has stopped in the last few months. He denies any illicit drug use. REVIEW OF SYSTEMS: GENERAL: Denies fever, fatigue or weight changes. HEENT: Negative for sinus symptoms, ear pain, vision changes or sore throat. RESPIRATORY: Positive for coughing and shortness of breath. Negative for wheezing. CARDIAC: Positive for palpitations. Negative for chest pain or tachycardia. GASTROINTESTINAL: Negative for abdominal pain, nausea, vomiting, diarrhea or constipation. GENITOURINARY: Negative for hematuria, dysuria or polyuria. MUSCULOSKELETAL: Positive for chronic back pain. Negative for neck pain, arthralgias or myalgias. SKIN: Negative for lesions or rashes. NEUROLOGIC: Positive for dizziness and light-headedness. Negative for headaches, seizures, numbness or stroke-like symptoms. PHYSICAL EXAMINATION: VITAL SIGNS: Temperature 98, heart rate 77, blood pressure 191/82, respiratory rate 18, O2 saturation 96% on room air. GENERAL: This is a 58 year-old male patient who is sitting up on the side of his bed. He is in no acute distress. HEENT: Normocephalic and atraumatic. Pupils are equal and reactive. Oropharynx is clear. NECK: Supple without mass. There is no discernible jugular venous distention. RESPIRATORY: A few scattered crackles throughout. Otherwise clear to auscultation. CHEST: There is equal rise and fall of the chest with inspiration and expiration. CARDIOVASCULAR: Regular rate, irregular rhythm. Atrial fibrillation on the potline monitor. GASTROINTESTINAL: Abdomen is soft, nondistended, non-tender. Bowel sounds are positive. EXTREMITIES: No cyanosis or clubbing. He does have +1 to 2 pitting edema to the lower extremities. Bilateral pedal pulses are palpable at +2. NEUROLOGIC: He is awake, alert and oriented times three. Cranial nerves II-XII are grossly intact as tested. SKIN: Warm and dry. ASSESSMENT: 1. Multiple same level falls with no loss of consciousness or obvious injury, unknown etiology. 2. Bradycardia. He is on digoxin and beta maite that may have contributed to #1. 3. Congestive heart failure of unknown etiology with mild exacerbation. His BNP is 235. He is on a beta maite, Lasix and digoxin. 4. Chronic obstructive pulmonary disease without exacerbation in a current smoker. 5. Atrial fibrillation, controlled rate on digoxin and beta maite as well as Coumadin. 6. Compression fracture of L1 that most likely is an older fracture. He does have extensive back surgery. 7. Renal insufficiency, most likely prerenal azotemia. 8. Electrolyte imbalance, including hypomagnesemia, hypokalemia and hypophosphatemia. 9. Tobacco abuse. 10. Subtherapeutic INR with noncompliance. 11. Hypertension. 12. Chronic low back pain. 13. Degenerative joint disease. 14. Severe osteopenia. PLAN: The patient has been placed in observation. Will continue to monitor his heart rate closely as he does have an occasional bradycardic episode as low as 39. It may be due to his taking both digoxin and a beta maite, although his digoxin level is subtherapeutic. At this point will continue on his beta maite but I will discontinue his digoxin, especially since he is fairly noncompliant anyway. He needs to be on an ARB so I will start Diovan, especially since his blood pressure is up. He has received several doses of IV Lasix and I will put him on his p.o. Lasix tomorrow. Will also have an echocardiogram done today. We will done tobacco cessation. I have encouraged the patient to stop smoking. His breathing treatments are scheduled and p.r.n. He has been started on Lovenox for deep venous thrombosis prophylaxis and I will restart his Coumadin today. I will check his INR tomorrow. We can discontinue his Lovenox as soon as he is therapeutic. His home medications will be restarted as soon as they are verified. I have already gotten him a followup appointment with Dr. Ma after discharge since he will be off his digoxin and he will need to be monitored closely with his beta maite and his new prescription of Diovan. Will continue to monitor closely and follow as needed. #[id number] [facility]
[2019-06-28] MEDS ORDERED: ACETAMINOPHEN 325 MG TAB PO PRN (23:55)
[2019-06-28] MEDS ORDERED: ONDANSETRON INJ 4 MG/2 ML VIAL IV PRN (23:55)
[2019-06-28] MEDS ORDERED: ALBUTEROL SULFATE 2.5 MG/3 ML VIAL NEB PRN (23:55)
[2019-06-28] MEDS ORDERED: SODIUM CHLORIDE 0.9% (FLUSH) 10 ML SYG IV PRN (23:55)
[2019-06-28] MEDS ORDERED: NITROGLYCERIN 0.4 MG 25 EA TAB SL PRN (23:55)
[2019-06-29] MEDS ORDERED: ENOXAPARIN SODIUM 40 MG/0.4 ML SYG SUBCU ONE (00:07)
[2019-06-29] MEDS ORDERED: MAGNESIUM SULFATE PREMIX 2GM 2 GM in PREMIX BAG 1 BAG IVPB ONE (00:11)
[2019-06-29] MEDS ORDERED: MAGNESIUM SULFATE PREMIX 2GM 50 ML IVPB ONE (00:48)
[2019-06-29] MEDS: IV SET AND CAP CHANGE INJ INJ SCH (00:49)
[2019-06-29] MEDS: ALBUTEROL SULFATE 2.5 MG/3 ML VIAL NEB SCH ×4 (09:01→20:15)
[2019-06-29] MEDS ORDERED: POTASSIUM CHLORIDE 20 MEQ TAB PO ONE (09:18)
[2019-06-29] MEDS ORDERED: METOPROLOL TARTRATE 25 MG TAB ONE (09:31)
[2019-06-29] MEDS ORDERED: DIGOXIN 0.125 MG TAB ONE (09:34)
[2019-06-29] MEDS: diphenhydrAMINE HCL 25 MG CAP PO SCH (09:56)
[2019-06-29] MEDS: FUROSEMIDE INJ 40 MG/4 ML VIAL IV SCH (09:57)
[2019-06-29] MEDS: SODIUM CHLORIDE 0.9% (FLUSH) 10 ML SYG IV SCH ×2 (09:57→20:53)
[2019-06-29] MEDS: METOPROLOL TARTRATE 50 MG TAB PO SCH ×2 (09:59→20:48)
[2019-06-29] MEDS ORDERED: LISINOPRIL 10 MG TAB PO SCH (12:00)
[2019-06-29] MEDS ORDERED: DIGOXIN 0.125 MG TAB PO SCH (12:00)
[2019-06-29] MEDS: VALSARTAN 80 MG TAB PO SCH (13:08)
[2019-06-29] MEDS: WARFARIN SODIUM 5 MG TAB PO SCH (13:08)
[2019-06-29] MEDS: ENOXAPARIN SODIUM 40 MG/0.4 ML SYG SUBCU SCH (20:48)
[2019-06-29] MEDS: ACETAMINOPHEN W/ COD #4 TAB 1EA TAB PO PRN (21:06)
[2019-06-30] MEDS ORDERED: cloNIDine HCL 0.1 MG TAB PO ONE (02:52)
[2019-06-30] MEDS: ACETAMINOPHEN W/ COD #4 TAB 1EA TAB PO PRN ×2 (05:44→20:19)
[2019-06-30] MEDS: METOPROLOL TARTRATE 50 MG TAB PO SCH ×2 (08:00→20:19)
[2019-06-30] MEDS: VALSARTAN 80 MG TAB PO SCH (08:00)
[2019-06-30] MEDS: diphenhydrAMINE HCL 25 MG CAP PO SCH (08:08)
[2019-06-30] MEDS: SODIUM CHLORIDE 0.9% (FLUSH) 10 ML SYG IV SCH ×2 (08:08→20:21)
[2019-06-30] MEDS: ALBUTEROL SULFATE 2.5 MG/3 ML VIAL NEB SCH ×4 (08:34→20:35)
[2019-06-30] MEDS: FUROSEMIDE INJ 40 MG/4 ML VIAL IV SCH (08:45)
[2019-06-30] MEDS ORDERED: VALSARTAN 80 MG TAB PO ONE (09:30)
[2019-06-30] MEDS ORDERED: WARFARIN SODIUM 2 MG TAB PO ONE (12:00)
[2019-06-30] MEDS: WARFARIN SODIUM 5 MG TAB PO SCH (12:17)
--- NOTE | 2019-06-30 15:32 | RAD ---
EXAM: XR Right Knee, 1 or 2 Views CLINICAL HISTORY: The patient is 58 years old and is Male; fall TECHNIQUE: Frontal and/or lateral views of the right knee. COMPARISON: No relevant prior studies available. FINDINGS: BONES/JOINTS: Minimal medial and lateral compartment joint space narrowing is present. Hypertrophy of the intercondylar eminence is noted. There is no joint effusion. No acute fracture. No dislocation. SOFT TISSUES: Unremarkable. IMPRESSION: Mild degenerative change of the right knee. Electronically signed by: Mojgan Curry MD 06/30/2019 3:31 PM [facility]
--- NOTE | 2019-06-30 15:32 | RAD ---
: 1960. Technique: Two views of the left ankle. Clinical history: fall. Findings: There is mild soft tissue swelling. There is cortical disruption of the dorsal navicular bone on the lateral view. Suggesting a potential avulsion injury. There is moderate traumatic remodeling of the distal left fibula noted. Normal articulations. Normal ankle mortise. No destructive lesion. Small dorsal and plantar heel spurs. Impression: 1. Possible acute avulsion from the dorsal navicular. Correlate with any point tenderness. Electronically signed by: Philippe Robb MD 06/30/2019 3:30 PM [facility]
[2019-06-30] MEDS: ENOXAPARIN SODIUM 40 MG/0.4 ML SYG SUBCU SCH (20:20)
--- NOTE | 2019-06-30 21:35 | PN ---
DATE: 06/30/19 SUPERVISING PHYSICIAN: Herb Roland M.D. SUBJECTIVE: The patient is sitting on the side of the bed. He complains of his right lateral knee hurting as well as his left ankle hurting from his fall yesterday while in the Emergency Room. He has had no dizziness or syncopal episodes while in the hospital, but he did say he fell awkwardly yesterday. He also complains that he has a wart on his right posterior upper arm that continues to get caught on things and bleeds, and would like it taken off. I explained that we would let his primary care physician do that. He does feel very weak but has had no syncopal or dizzy spells since being in the hospital. He denies any chest pain, nausea, vomiting or diarrhea. He does have to use a walker to get around due to the pain in his right knee and left ankle. OBJECTIVE: VITAL SIGNS: Temperature 97.8, heart rate 64. It has dropped as low as 58 and has been as high as 88. Blood pressure 164/94. Last night it was 197/140 and after receiving Clonidine it was 170/99. Respiratory rate is 17, O2 saturation is 95% on room air. RESPIRATORY: Essentially clear to auscultation bilaterally. CARDIAC: Regular rate, irregular rhythm. Atrial fibrillation on the cardiac cath technologist. GASTROINTESTINAL: Abdomen is soft, nondistended, non-tender. Bowel sounds are positive. EXTREMITIES: His right posterior upper arm has a wart-like lesion that has partially pulled off. There is a scab where it has been bleeding. There are no signs or symptoms of infection. His right lateral knee is tender to palpation with a very mild ecchymotic area and minimal swelling. There is no swelling to his left ankle but there is tenderness to palpation to the top and medial aspect of his left foot and ankle. No bruising noted. Bilateral pedal pulses are palpable at +2. NEUROLOGIC: He is awake, alert and oriented times three. LABORATORY: CBC is unremarkable. INR is 1.36. Potassium is slightly low at 3.3 with chloride 98. Hemoglobin A1c is 5.5. All other labs and films have been reviewed via the EMR. ASSESSMENT: 1. Multiple same level falls with no loss of consciousness, unknown etiology. 2. Bradycardia. He was previously on digoxin which has been discontinued. He is also on a beta maite and that has been continued. His bradycardia may have contributed to #1. 3. Congestive heart failure with a diastolic and systolic dysfunction. His ejection fraction is 25 to 30% with severe global hypokinesis. His echocardiogram was done on 06/29/19. 4. Chronic obstructive pulmonary disease without exacerbation in a current smoker. 5. Atrial fibrillation with a controlled rate. His digoxin has been discontinued and beta maite continued as well as his Coumadin. 6. Compression fracture of L1 that most likely is an older fracture. He has had extensive back surgery. 7. Renal insufficiency, most likely prerenal azotemia that has improved. 8. Electrolyte imbalance, including hypomagnesemia and hypophosphatemia that have resolved. He still has mild hypokalemia. 9. Tobacco abuse. 10. Subtherapeutic INR with noncompliance. 11. Hypertension. 12. Chronic low back pain. 13. Degenerative joint disease. 14. Severe osteopenia. 15. Right knee pain and left ankle pain status post same level fall from yesterday. PLAN: Will continue present supportive care. I will have the nursing staff do a tilt blood pressure. Will continue to monitor his heart rate. His digoxin was discontinued and his lowest blood pressures have been noted in the 50s, but he is having difficulty walking without a walker or assistance. I have encouraged nursing to walk him with assistance and watch his telemetry. He will most likely need to go home on a Holter monitor. I have also increased his Diovan as his blood pressure continues to be quite high and hopefully we can get that under control. I have also x-rayed his right knee and left ankle, and he may need physical therapy or followup with Dr. Ashraf as far as those injuries are concerned. He also may need a walker on discharge as he lives alone and I am somewhat concerned for his safety. His oral medications have been resumed. He is no longer on IV Lasix. He will need a cardiology followup due to his echocardiogram results. We again spoke about smoking cessation. Will continue with his breathing treatments and aggressive pulmonary hygiene. His Lovenox will be continued and he will get an extra dose of Coumadin today with a PT and INR repeated in the morning. Will continue to monitor closely and follow as needed. #[id number] [facility]
[2019-07-01] MEDS ORDERED: cloNIDine HCL 0.1 MG TAB ONE (01:36)
[2019-07-01] MEDS: cloNIDine HCL 0.1 MG TAB PO PRN ×2 (01:39→05:35)
[2019-07-01] MEDS: ACETAMINOPHEN W/ COD #4 TAB 1EA TAB PO PRN ×2 (02:06→20:33)
[2019-07-01] MEDS: ALBUTEROL SULFATE 2.5 MG/3 ML VIAL NEB SCH ×4 (07:55→20:52)
[2019-07-01] MEDS: METOPROLOL TARTRATE 50 MG TAB PO SCH (08:01)
[2019-07-01] MEDS: FUROSEMIDE INJ 40 MG/4 ML VIAL IV SCH (08:02)
[2019-07-01] MEDS: diphenhydrAMINE HCL 25 MG CAP PO SCH (08:02)
[2019-07-01] MEDS: SODIUM CHLORIDE 0.9% (FLUSH) 10 ML SYG IV SCH ×2 (08:02→20:29)
[2019-07-01] MEDS ORDERED: VALSARTAN 80 MG TAB PO SCH (09:00)
[2019-07-01] MEDS ORDERED: POTASSIUM CHLORIDE 20 MEQ TAB PO ONE (10:24)
--- NOTE | 2019-07-01 12:38 | CT ---
EXAM DESCRIPTION: Lower Extremity CLINICAL HISTORY: 58 years Male pt complaint of pain COMPARISON: Radiograph of the right knee dated June 30, 2019. TECHNIQUE: Images were obtained in axial, sagittal, and coronal planes. No intravenous contrast was administered. This exam was performed according to our departmental dose-optimization program which includes use of Automated Exposure Control, adjustment of the mA and/or kV according to patient size and/or use of iterative reconstruction technique. FINDINGS: No fracture seen. Normal bony mineralization. No erosive or lytic lesions seen. No cortical disruption. No abnormal periosteal reaction. No soft tissue abnormalities seen. IMPRESSION: No fracture or dislocation seen. No localizing abnormality noted. Electronically signed by: Soniya Crain MD 07/01/2019 12:36 PM [employer]HOUSE [employer] ASSOCIATE
--- NOTE | 2019-07-01 12:50 | CT ---
EXAM DESCRIPTION: Lower Extremity CLINICAL HISTORY: 58 years Male Possible injury COMPARISON: Radiograph of the left ankle dated June 30, 2019. TECHNIQUE: Images were obtained in axial, sagittal, and coronal planes. 3-D reconstruction was performed. No intravenous contrast was administered. This exam was performed according to our departmental dose-optimization program which includes use of Automated Exposure Control, adjustment of the mA and/or kV according to patient size and/or use of iterative reconstruction technique. FINDINGS: Deformity diametaphyseal regions distal fibula consistent with more remote trauma. Cortical defect with sclerotic margins medial distal fibular shaft likely incomplete healing. Deformity with bone fragment dorsal aspect navicular bone on sagittal imaging consistent with fracture of indeterminate age. Degenerative spurring distal tibia. Well-circumscribed bone fragment adjacent to lateral aspect distal tibia likely related to more remote trauma. No focal fracture visualized left foot. Small calcaneal spur. Vascular calcifications. IMPRESSION: Findings consistent with more remote fracture diametaphyseal region distal fibula. Residual cortical defect with sclerotic margins present suggesting incomplete healing. This finding is best identified on axial series 4 image 22. Deformity with bone fragment dorsal aspect navicular bone consistent with fracture of indeterminate age. Clinical correlation point tenderness needed for further characterization. More remote fracture versus loose body adjacent to lateral distal tibia. Electronically signed by: Soniya Crain MD 07/01/2019 12:49 PM FLIGHT TEACHER
[2019-07-01] MEDS: WARFARIN SODIUM 5 MG TAB PO SCH (12:55)
[2019-07-01] MEDS ORDERED: WARFARIN SODIUM 3 MG TAB PO ONE (14:23)
[2019-07-01] MEDS ORDERED: VALSARTAN 80 MG TAB PO ONE (16:06)
[2019-07-01] MEDS: ENOXAPARIN SODIUM 40 MG/0.4 ML SYG SUBCU SCH (20:29)
[2019-07-01] MEDS ORDERED: METOPROLOL TARTRATE 50 MG TAB PO SCH (21:00)
--- NOTE | 2019-07-01 21:44 | PN ---
DATE: 07/01/19 SUPERVISING PHYSICIAN: Herb Roland M.D. SUBJECTIVE: The patient is lying in bed. He has no complaints. Denies any dizziness or weakness, although he has been in bed. He is unable to get out of bed due to his left foot injury. Denies chest pain, shortness of breath, nausea or vomiting. OBJECTIVE: VITAL SIGNS: Temperature 97.8, heart rate 61 although it does drop to the 50s and has dropped into the 40s several times per nursing. Blood pressure 156/88, respiratory rate 18, O2 saturation 94% on room air. RESPIRATORY: Essentially clear to auscultation bilaterally. CARDIAC: Regular rate, irregular rhythm. At times he is bradycardic. NEUROLOGIC: He is awake, alert and oriented times three. LABORATORY: CBC is unremarkable. INR is 1.67. Potassium is slightly low at 3.5 with chloride 97, carbon dioxide 33, BUN 22. The remainder of his metabolic panel is unremarkable. Left ankle CT shows findings consistent with a more remote fracture diametaphyseal region distal fibula. Residual cortical defect with sclerotic margins present suggesting incomplete healing. This finding is best identified on axial series 4 image 22. Deformity with bone fragment dorsal aspect navicular bone consistent with fracture of indeterminate age. Clinical correlation with point tenderness needed for further characterization. More remote fracture versus loose body adjacent to the lateral distal tibia. Right lower extremity CT shows no fracture or dislocation seen. No localized abnormality noted. All other labs and films have been reviewed via the EMR. ASSESSMENT: 1. Multiple same level falls with no loss of consciousness, unknown etiology. 2. Bradycardia. He was previously on digoxin which has been discontinued. He is also on a beta maite that has been continued but decreased. His bradycardia may have contributed to #1. 3. Congestive heart failure with a diastolic and systolic dysfunction. His ejection fraction is 25 to 30% with severe global hypokinesis. His echocardiogram was done on 06/29/19. 4. Navicular fracture of the left foot status post fall in the Emergency Room. It is of indeterminate age. 5. Chronic obstructive pulmonary disease without exacerbation in a current smoker. 6. Atrial fibrillation with a controlled rate. His digoxin has been discontinued and beta maite continued as well as his Coumadin. 7. Compression fracture of L1 that most likely is an older fracture. He has had extensive back surgery. 8. Renal insufficiency, most likely prerenal azotemia that has improved. 9. Electrolyte imbalance, including hypomagnesemia and hypophosphatemia that have resolved. He still has mild hypokalemia. 10. Tobacco abuse. 11. Subtherapeutic INR with noncompliance. 12. Hypertension. 13. Chronic low back pain. 14. Degenerative joint disease. 15. Severe osteopenia. 16. Right knee pain and left ankle pain status post same level fall from yesterday. PLAN: We will continue present supportive care. At this point he will be on bedrest until he can get a walking boot on the left foot as well as an evaluation by Physical Therapy. That will be tomorrow. I have increased his Diovan to 320 daily and decreased his metoprolol to 50 mg b.i.d., and hope that he will stop having those episodes of heart rates that are in the 40s. At this point we will be unable to evaluate if his syncopal episodes are from his bradycardia, but he will need to go home on a Holter monitor. He has not had any episodes of dizziness or syncope since he has been in the hospital, so hopefully he can be discharged tomorrow with a walking boot and close followup with Dr. Ma. He already has an appointment with him on Tuesday. Will continue to monitor closely and follow as needed. #[id number] [facility]
[2019-07-02] MEDS ORDERED: TEMAZEPAM 15 MG CAP PO PRN (00:08)
[2019-07-02] MEDS: cloNIDine HCL 0.1 MG TAB PO PRN (00:10)
[2019-07-02] MEDS: IV SET AND CAP CHANGE INJ INJ SCH (04:56)
[2019-07-02] MEDS: METOPROLOL TARTRATE 50 MG TAB PO SCH ×2 (08:05→17:39)
[2019-07-02] MEDS: VALSARTAN 80 MG TAB PO SCH (08:05)
[2019-07-02] MEDS: FUROSEMIDE INJ 40 MG/4 ML VIAL IV SCH (08:05)
[2019-07-02] MEDS: SODIUM CHLORIDE 0.9% (FLUSH) 10 ML SYG IV SCH ×2 (08:05→20:08)
[2019-07-02] MEDS: diphenhydrAMINE HCL 25 MG CAP PO SCH (08:06)
[2019-07-02] MEDS: ALBUTEROL SULFATE 2.5 MG/3 ML VIAL NEB SCH ×4 (08:10→20:02)
--- NOTE | 2019-07-02 11:23 | RAD ---
EXAM DESCRIPTION: Chest,2 Views CLINICAL HISTORY: Diminished Breath Sounds/CHF COMPARISON: June 29, 2019 FINDINGS: Two-view chest x-ray shows mild enlargement of the cardiac silhouette without pulmonary vascular congestion. The lungs are normally aerated and clear. Costophrenic angles are sharp. Moderate disc degenerative changes of the lower thoracic spine are seen with posterior hardware fixation of the thoracolumbar spine. IMPRESSION: No radiographic evidence of acute cardiopulmonary disease. Mild cardiomegaly without pulmonary vascular congestion. Electronically signed by: Ted Mock MD 07/02/2019 11:21 AM [facility]
[2019-07-02] MEDS: WARFARIN SODIUM 5 MG TAB PO SCH (13:22)
[2019-07-02] MEDS ORDERED: NITROGLYCERIN 0.4 MG/HR PATCH TOP SCH (15:00)
[2019-07-02] MEDS: ENOXAPARIN SODIUM 40 MG/0.4 ML SYG SUBCU SCH (20:08)
--- NOTE | 2019-07-02 20:42 | PN ---
DATE: 07/02/19 SUPERVISING PHYSICIAN: Rolf Hendricks M.D. SUBJECTIVE: The patient is resting on the side of the bed. He did have a little episode of rapid ventricular response this morning and required additional Cardizem. He denied any chest pains. Shortness of breath is minimal. He has had no nausea or vomiting. OBJECTIVE: VITAL SIGNS: Temperature 97.5, pulse this morning prior to Cardizem was 166, after 20 of Cardizem he was anywhere from 40 to 60 with atrial fibrillation controlled. He is still hypertensive with a blood pressure of 176/97, respirations 16, satting 96% on room air. After he was started on a Nitro patch, his blood pressure was down to 161/82. CHEST: Lung sounds were fairly clear, just diminished towards the bases. HEART: Irregular rate and rhythm. Initially showing to be tachycardic prior to Cardizem, but controlled after a single dose. ABDOMEN: Obese but soft, non-tender. Positive bowel sounds. EXTREMITIES: He has a boot on his left foot. NEUROLOGIC: He is alert and oriented times three. On the other extremity, there is no obvious clubbing, cyanosis or edema. LABORATORY: No additional laboratory as far as chemistries or hematology. He did have a troponin that was showing to be negative at 0.04. TSH was 2.8. BNP on admission was 235. INR today was 2.2. RADIOLOGY: Repeat chest x-ray this morning per radiology interpretation showed no radiographic evidence of acute cardiopulmonary disease. There is some mild cardiomegaly without pulmonary vascular congestion. ASSESSMENT: 1. Multiple same level falls with no loss of consciousness, likely a syncopal episode due to #2. 2. Atrial fibrillation with rapid ventricular response showing to be on a beta maite with some episodes of bradycardia requiring further medication management. 3. Congestive heart failure, combined diastolic and systolic dysfunction with last echocardiogram showing an ejection fraction of 25 to 30% with global hypokinesia on 06/29/19 with no overt signs of failure or exacerbation. 4. Navicular fracture of the left foot status post fall in the Emergency Room. It is of indeterminate age. 5. Chronic obstructive pulmonary disease without exacerbation in a current smoker. 6. Compression fracture of L1 that most likely is an older fracture. He has had extensive back surgery. 7. Renal insufficiency, most likely prerenal azotemia that has improved. 8. Electrolyte imbalance, including hypomagnesemia and hypophosphatemia that have resolved. He still has mild hypokalemia. 9. Tobacco abuse. 10. Subtherapeutic INR with noncompliance. 11. Hypertension. 12. Chronic low back pain. 13. Degenerative joint disease. 14. Severe osteopenia. 15. Right knee pain and left ankle pain status post same level fall from yesterday. PLAN: We did have to give him a dose of Cardizem this morning which was again resulting in some initial bradycardia, but the rest of the day he has shown much better control in his rate. His Diovan was increased over the weekend to 320 daily. He still remains on decreased metoprolol at 50 mg b.i.d. I have requested a consultation with Dr. Sutherland as Dr. Sutherland has seen him in the past. We may have to restart his Digoxin but given his bradycardia certainly will wait before any additional medications for a consultation with cardiology. Hopefully be able to discharge later tomorrow. He already has a boot in place on the left leg. On discharge he will need to followup with Dr. Ma. Until then will continue to follow and treat as needed. #[id number] [facility]
[2019-07-03] MEDS: SODIUM CHLORIDE 0.9% (FLUSH) 10 ML SYG IV SCH (08:01)
[2019-07-03] MEDS: FUROSEMIDE INJ 40 MG/4 ML VIAL IV SCH (08:01)
[2019-07-03] MEDS: METOPROLOL TARTRATE 50 MG TAB PO SCH ×2 (08:01→16:49)
[2019-07-03] MEDS: VALSARTAN 80 MG TAB PO SCH (08:01)
[2019-07-03] MEDS: diphenhydrAMINE HCL 25 MG CAP PO SCH (08:04)
[2019-07-03] MEDS: ACETAMINOPHEN W/ COD #4 TAB 1EA TAB PO PRN (08:13)
[2019-07-03] MEDS: ALBUTEROL SULFATE 2.5 MG/3 ML VIAL NEB SCH ×3 (08:28→16:00)
[2019-07-03] MEDS ORDERED: NITROGLYCERIN 0.4 MG/HR PATCH TOP SCH (09:00)
--- NOTE | 2019-07-03 10:19 | CONS ---
DATE OF CONSULTATION: 07/02/19 CHIEF COMPLAINT: Left foot pain. HISTORY OF PRESENT ILLNESS: Mr. Lopez is a 58-year-old male with a history of multiple falls. He presented to the Emergency Room with syncopal episodes. He had a fall while in our Emergency Room and complained of foot pain. He was admitted for workup of his syncopal episodes. I have been asked to see him for complaints of foot pain. He complains of pain diffusely about the foot with some on the ankle. He had no other injury associated with his fall. He denies any radiation of pain and denies any neurologic symptoms. Pain is exacerbated with weightbearing and alleviated with getting off the foot. He does use some anti-inflammatories which are helping as well. PAST MEDICAL HISTORY: 1. Hyperlipidemia. 2. Hypertension. 3. Atrial fibrillation. 4. Chronic obstructive pulmonary disease. 5. Degenerative joint disease. 6. Low back pain. 7. Congestive heart failure. PAST SURGICAL HISTORY: 1. Lumbar fusion. 2. Tonsillectomy. MEDICATIONS: 1. Albuterol. 2. Digoxin. 3. Furosemide. 4. Metoprolol. 5. Warfarin. 6. Potassium. ALLERGIES: CLAIMS ALLERGY TO AMOXICILLIN AND LISINOPRIL ALTHOUGH IT CAUSES DIARRHEA AND ANGIOEDEMA RESPECTIVELY. SOCIAL HISTORY: He does smoke and denies any illicit drug use. He does have a history of alcohol use. REVIEW OF SYSTEMS: Negative except as indicated in the History of Present Illness. PHYSICAL EXAMINATION: VITAL SIGNS: Temperature 98.5. Heart rate 80. Blood pressure 180/72. Respirations 18. O2 saturation 96% on room air. MENTAL STATUS: The patient is awake, alert, and is able to give a good history and participate in the physical. The patient is oriented to person, place and time. SKIN: Normal tone and turgor. HEENT: Normocephalic, atraumatic. Pupils equal, round and reactive. Mucosal membranes are moist. NECK: Normal range of motion. No thyromegaly, no lymphadenopathy. CHEST: Normal respiratory excursion. CARDIAC: Regular rate and rhythm. No murmurs, rubs or gallops. MUSCULOSKELETAL: The bilateral upper extremities show full active painless range of motion. There is no crepitus, no malalignment, no deformity. Strength is 5/5. Sensation is intact and he has good capillary refill. He has negative Neer and negative Resendzi. He has negative Tinel's throughout the extremity. The right lower extremity shows no malalignment or deformity. He has no swelling. He has full range of motion in the hip, knee, ankle and digits. He has a warm and well perfused extremity. He has no crepitus with range of motion of the hip, ankle or knee. There is no bruising and no tenderness to palpation. Strength is 5/5 in hip flexion, hip extension, knee flexion and extension, ankle dorsiflexion and plantar flexion and range of motion of the digits. The left lower extremity shows no pain or deformity in the hip or knee. He has no deformity in the ankle or foot. There is no significant swelling and there is no bruising. He has no laxity in the extremity. There is no crepitus with range of motion. He does have pain with the dorsum of the foot as well as on the anterolateral aspect. He has no instability of ankle or digits. RADIOLOGY: My interpretation of the x-rays shows no acute bony abnormality. CT scan was done and there is some slight concern for old fracture in addition to a possible avulsion off the navicular. ASSESSMENT: 1. Foot sprain. 2. Ankle sprain. PLAN: At this point, without any swelling, bruising or deformities, it is difficult to say that there is an acute injury other than sprain being present. That said, for comfort purposes, he should be in a boot and should be limited weightbearing. We are going to have him start walking with a walker as I do not believe crutches would be good just given his history of syncopal episodes. Thank you for allowing me to participate in the care of Mr. Lopez. [facility][id number] [facility]
[2019-07-03] MEDS: WARFARIN SODIUM 5 MG TAB PO SCH (11:57)
[2019-07-03 17:26] VITALS: BP 158/90; TEMP 97.8; O2SAT 95
--- NOTE | 2019-07-16 10:32 | DS ---
SUPERVISING PHYSICIAN: Forrest Hendricks MD ADMISSION DIAGNOSIS: 1. Multiple same level falls with no loss of consciousness or obvious injury, unknown etiology. 2. Bradycardia. He is on digoxin and beta maite that may have contributed to #1. 3. Congestive heart failure of unknown etiology with mild exacerbation. His BNP is 235. He is on a beta maite, Lasix and digoxin. 4. Chronic obstructive pulmonary disease without exacerbation in a current smoker. 5. Atrial fibrillation, controlled rate on digoxin and beta maite as well as Coumadin. 6. Compression fracture of L1 that most likely is an older fracture. He does have extensive back surgery. 7. Renal insufficiency, most likely prerenal azotemia. 8. Electrolyte imbalance, including hypomagnesemia, hypokalemia and hypophosphatemia. 9. Tobacco abuse. 10. Subtherapeutic INR with noncompliance. 11. Hypertension. 12. Chronic low back pain. 13. Degenerative joint disease. 14. Severe osteopenia. DISCHARGE DIAGNOSIS: 1. Multiple same level falls with no loss of consciousness, likely a syncopal episode due to #2. 2. Atrial fibrillation with rapid ventricular response showing to be on a beta maite with some episodes of bradycardia requiring further medication management. 3. Congestive heart failure, combined diastolic and systolic dysfunction with last echocardiogram showing an ejection fraction of 25 to 30% with global hypokinesia on 06/29/19 with no overt signs of failure or exacerbation. 4. Navicular fracture of the left foot status post fall in the Emergency Room. It is of indeterminate age. 5. Chronic obstructive pulmonary disease without exacerbation in a current smoker. 6. Compression fracture of L1 that most likely is an older fracture. He has had extensive back surgery. 7. Renal insufficiency, most likely prerenal azotemia that has improved. 8. Electrolyte imbalance, including hypomagnesemia and hypophosphatemia that have resolved. He still has mild hypokalemia. 9. Tobacco abuse. 10. Subtherapeutic INR with noncompliance. 11. Hypertension. 12. Chronic low back pain. 13. Degenerative joint disease. 14. Severe osteopenia. 15. Right knee pain and left ankle pain status post same level fall from yesterday. REASON FOR HOSPITALIZATION: This is a 58 year-old male patient who reported that he had multiple falls on the day he came to the Emergency Room. He actually fell outside his house, one time in the bathroom, another time on his porch, and then in the Emergency Room. There were no obvious injuries. He did not lose consciousness. He did complain of feeling dizzy and light-headed and he has never had these symptoms in the past. Yesterday, he also had some increase in his lower leg edema. He does have a history of congestive heart failure as well as atrial fibrillation. He also has a history of poor compliance with his digoxin and his Coumadin. Initially he felt like he had some chest pain but he felt that that was more shortness of breath. It did not radiate or did not worsen with exertion. In the Emergency Room, his initial vital signs showed temperature 96.3, heart rate 68, blood pressure 185/113, respiratory rate 18, O2 saturation 94% on room air. His EKG showed atrial fibrillation with a controlled rate. Laboratory studies were done. He had a CBC that was basically unremarkable. His INR was subtherapeutic at 1.4. He is on Coumadin. Sodium 140, potassium 3.3, chloride 98, glucose 174, phosphorus 1.9, magnesium 1.7. BNP was 235. His initial troponin was 0.05. He had a followup troponin that was 0.05. Chest x-ray showed no acute cardiopulmonary abnormalities with mild cardiomegaly. Head CT showed no acute intracranial injury. Lumbar spine x-ray recommended a CT to detect acute fractures due to his bones being severely osteopenic. Lumbar spine CT showed no acute lumbar spine fracture or subluxation, just a remote L1 compression fracture with prior T11-L3 posterior instrumented fusion with diffuse osteopenia and lower lumbar degenerative changes. He was admitted in stable condition. LABORATORY: White count was normal on discharge at 9,000. Differential was without a left shift. Hemoglobin and hematocrit were stable at 16 and 49 respectively. He was therapeutic on his INR at 2.20 on discharge. Chemistries on discharge showed potassium 3.5, BUN 22, creatinine 1.18. Troponins were within normal limits. TSH was normal at 2.80. Digoxin levels were low at 0.8. RADIOLOGY: CT of the head and per radiologic interpretation on admission showed no acute injury. Chest x-ray on admission showed no acute cardiopulmonary abnormalities. He had a lumbar spine CT as well as x-ray and per radiologic interpretation showed no acute lumbar fracture or subluxation. There was note of a remote L1 compression with prior T11-L3 posterior instrumented fusion. Please see that report for details. He had bilateral lower extremity CT that showed no fracture or dislocation. He had a left ankle CT that showed deformity of the diametaphyseal regions of distal fibula consistent with more remote trauma. There was deformity wit a bone fragment of the dorsal aspect of the navicular bone on the sagittal imaging. Please see that report for details. Impression: Findings consistent with remote fracture of diametaphyseal region of the distal fibula with residual cortical defect and sclerotic margins suggesting incomplete healing. Please see that report for details. The right ankle was without any acute findings. He had a knee x-ray of the right knee that showed mild degenerative changes. Echocardiogram showed decreased left ventricular systolic function with an ejection fraction of 20% to 30%. Last chest x-ray prior to discharge showed mild cardiomegaly without pulmonary vascular congestion. No acute cardiopulmonary disease. EKG showed atrial fibrillation with some PVCs, but controlled ventricular rate at 73. HOSPITAL COURSE: Mr. Lopez was admitted for a fall secondary to bradycardia. He requirement multiple adjustments of his medications. His heart rate was stabilized. He had one episode of atrial fibrillation with rapid ventricular response which required some Cardizem. After adjustment of medications, he was showing stable vital signs prior to discharge with a controlled ventricular rate. It was felt that he had shown good resolution of his symptoms and was stable enough to continue with outpatient management. He had also sustained an injury to his foot. He was seen in consultation by Dr. Ashraf and placed in a boot. PLAN: Mr. Lopez was discharged on 07/03/19 with instructions to followup with Dr. Ma and Dr. Sutherland. He was to resume his medications as instructed. He was encouraged to stop smoking and return to the hospital as needed. Diet on discharge was low sodium diet. Activity to increase as tolerated. Medications on discharge included: 1. Metoprolol 50 mg twice daily, no refills. 2. Potassium chloride 10 mEq daily, #30, no refills. All other medications prior to hospital were continued. CONDITION ON DISCHARGE: Stable and improved. DISPOSITION: The patient was discharged to home and family. #[id number] [facility]
== END 2019-07-03 17:34 | disposition home or self-care (01) | DRG 309 ==
LOC: ER 18:49 → UNDOADMOB 23:52 → MS 23:52 → OBSVTOIN 07-01 19:45
PROVIDERS: ADMIT Nurse Practitioner Acute Care; ATTEND Nurse Practitioner Family
DX: R00.1 Bradycardia, unspecified (principal); I50.42 Chronic combined systolic (congestive) and diastolic (congestive) heart failure; I48.91 Unspecified atrial fibrillation; E78.5 Hyperlipidemia, unspecified; I11.0 Hypertensive heart disease with heart failure; E83.42 Hypomagnesemia; E87.6 Hypokalemia; J44.9 Chronic obstructive pulmonary disease, unspecified; M19.90 Unspecified osteoarthritis, unspecified site; M54.5 Low back pain; F17.210 Nicotine dependence, cigarettes, uncomplicated; S93.402A Sprain of unspecified ligament of left ankle, initial encounter; G89.29 Other chronic pain; N28.9 Disorder of kidney and ureter, unspecified; R79.1 Abnormal coagulation profile; M85.80 Other specified disorders of bone density and structure, unspecified site; W19.XXXA Unspecified fall, initial encounter; Y92.9 Unspecified place or not applicable; Z91.14 Patient's other noncompliance with medication regimen; Z98.1 Arthrodesis status; Z88.0 Allergy status to penicillin; Z88.8 Allergy status to other drugs, medicaments and biological substances; Z79.01 Long term (current) use of anticoagulants; Z79.899 Other long term (current) drug therapy

== ENCOUNTER 2019-07-25 14:16 | Observation (INO) | payer SELFPAY ==
[2019-07-25] MEDS ORDERED: SODIUM CHLORIDE 0.9% 1000ML 1,000 ML IVS PRN (14:26)
--- NOTE | 2019-07-25 14:34 | ED.PDOC ---
History of Present Illness - General Chief Complaint: Cardiovascular Problem Stated Complaint: Weakness, SOB Time Seen by Provider: 07/25/19 14:22 Source: patient, RN notes reviewed, Vital Signs reviewed, old records Exam Limitations: no limitations - History of Present Illness Initial Comments: 58 yo male with PMH of afib, CHF, COPD, HTN and CRI who presents to ED for 1 day h/o palpitations, rapid heart rate, generaized weakness and feeling SOB. States he has had this before due to rapid heart rate from afib. Denies fever, chills, cough, NVD. States he is on Coumadin and Toprol for his afib and is followed by Dr. Sutherland. Allergies/Adverse Reactions: Allergies Lisinopril Allergy (Intermediate, Verified 07/25/19 14:29) Other tongue swelling Penicillins Adverse Reaction (Intermediate, Verified 07/25/19 14:29) Diarrhea Home Medications: Ambulatory Orders Furosemide [Lasix] 40 mg PO DAILY 08/26/17 DiphenhydrAMINE HCL [Benadryl] 50 mg PO DAILY 06/29/19 Warfarin Sodium 5 mg PO DAILY 06/29/19 Metoprolol Tartrate 50 mg PO BID #0 07/03/19 Potassium Chloride Tab [Micro-K] 10 meq PO DAILY #30 tab 07/03/19 Valsartan [Diovan] 320 mg PO DAILY #60 tab 07/03/19 Review of Systems - Review of Systems Constitutional: Denies: chills, fever EENTM: Denies: ear pain, throat pain Respiratory: States: short of breath. Denies: cough, wheezing Cardiology: States: palpitations. Denies: chest pain, edema, syncope Gastrointestinal/Abdominal: Denies: abdominal pain, nausea, vomiting Musculoskeletal: Denies: back pain, muscle pain, neck pain Skin: States: no symptoms reported Neurological: States: no symptoms reported Hematologic/Lymphatic: States: no symptoms reported All other Systems: Reviewed and Negative Past Medical History (General) - Patient Medical History Hx Seizures: No Hx Stroke: No Hx Dementia: No Hx Asthma: Yes Hx of COPD: Yes Hx Cardiac Disorders: Yes - Atrial fib Hx Congestive Heart Failure: Yes Hx Pacemaker: No Hx Hypertension: Yes Hx Thyroid Disease: No Hx Diabetes: No Hx Gastroesophageal Reflux: No Hx Renal Disease: No Hx Cancer: No Hx of HIV: No Hx Hepatitis C: No Hx MRSA: No Surgical History: tonsillectomy - Vaccination History Hx Tetanus, Diphtheria Vaccination: No Hx Influenza Vaccination: No Hx Pneumococcal Vaccination: No - Social History Hx Tobacco Use: Yes Hx Alcohol Use: No Hx Substance Use: No Hx Substance Use Treatment: No Hx Depression: No Hx Physical Abuse: No Hx Emotional Abuse: No - Female History Patient : No Family Medical History - Family History Father Living Status: Age at (years of age): 34 Cause of : blunt head trama Hx Cardiac Disease: Yes Hx Family;Other: kidney disease Paternal Grandparents Living Status: Cause of : kidney disease Grandparents Living Status: Hx Cardiac Disease: Yes Mother Family History: Unknown Living Status: Still Living Hx Cardiac Disease: Yes Hx Family;Other: Dementia Physical Exam - Physical Exam General Appearance: Alert, Comfortable, No apparent distress, Well Nourished Eyes, Ears, Nose, Throat Exam: PERRL/EOMI, pharynx normal Neck: non-tender, full range of motion, supple Respiratory: chest non-tender, other - Good air movement with occasional expiratory wheeze Cardiovascular/Chest: other - irregularly irregular, tachycardic Gastrointestinal/Abdominal: non tender, soft, no pulsatile mass Extremity: normal range of motion, non-tender, normal inspection, no calf tenderness Neurologic: no motor/sensory deficits, alert, normal mood/affect Skin Exam: normal color Progress - Progress Progress: 07/25/19 17:05 D/W Dr. Ma, patients PCP, at 1648. Recommends to discuss with Dr. Sutherland or obs in hospital to r/o ACS. I have been unable to contact Dr. Sutherland. Pt has been in afib with rate 70-80's since recieving Diltiazem. I have d/w Yael Lozano hospitalist, she requests repeat troponin in ED and will call back. 07/25/19 18:07 Repeat troponin stable. i have valentin/w rad [place] and will admit to obs. - Results/Orders Results/Orders: EKG at 1419 Atrial Fibrillation, rate 153, normal QRS interval, nonspecific ST abnormality EXAM DESCRIPTION: Chest,1 View CLINICAL HISTORY: Cough COMPARISON: Chest radiograph dated July 02, 2019 TECHNIQUE: 1 view radiograph of the chest FINDINGS: Cardiac silhouette shows cardiomegaly with mild central pulmonary vascular congestion. Linear opacity in the bilateral lung bases most likely represent atelectasis. Otherwise, lungs show no confluent infiltrates. Costophrenic angles are sharp. No pneumothorax. No acute osseous abnormality. IMPRESSION: 1. Cardiomegaly with mild central pulmonary vascular congestion. No afia pulmonary edema. 2. Mild bibasilar atelectasis. Otherwise, lungs show no confluent infiltrates. 07/25/19 14:24 IV:Start .ONCE 07/25/19 14:26 Sodium Chloride 0.9% 1000ML [Ns 1000 ml] 1,000 ml IVS .QD 07/25/19 14:30 EKG .ONCE Laboratory Results - last 24 hr 07/25/19 07/25/19 07/25/19 14:25 14:25 14:25 WBC 10.1 RBC 5.87 Hgb 17.5 Hct 53.0 H MCV 90.3 MCH 29.8 MCHC 33.0 RDW 14.8 H Plt Count 165 MPV 11.2 H Absolute Neuts (auto) 7.70 H Absolute Lymphs (auto) 1.30 Absolute Monos (auto) 0.60 Absolute Eos (auto) 0.40 Absolute Basos (auto) 0.10 Neutrophils % 76.4 Lymphocytes % 13.1 L Monocytes % 5.8 Eosinophils % 3.9 Basophils % 0.8 PT INR PTT (SP) Sodium 137 Potassium 3.4 L Chloride 100 L Carbon Dioxide 26 Anion Gap 14.4 BUN 18 Creatinine 1.18 BUN/Creatinine Ratio 15.3 Random Glucose 137 H Serum Osmolality 277.9 Calcium 9.1 Total Bilirubin 1.5 H AST 22 ALT 21 Alkaline Phosphatase 78 Troponin I 0.07 H* B-Natriuretic Peptide 481.0 H* Serum Total Protein 7.4 Albumin 3.6 Globulin 3.8 H Albumin/Globulin Ratio 0.9 L Digoxin 07/25/19 07/25/19 07/25/19 14:25 14:25 17:15 WBC RBC Hgb Hct MCV MCH MCHC RDW Plt Count MPV Absolute Neuts (auto) Absolute Lymphs (auto) Absolute Monos (auto) Absolute Eos (auto) Absolute Basos (auto) Neutrophils % Lymphocytes % Monocytes % Eosinophils % Basophils % PT 17.6 H INR 1.78 H PTT (SP) 28.5 Sodium Potassium Chloride Carbon Dioxide Anion Gap BUN Creatinine BUN/Creatinine Ratio Random Glucose Serum Osmolality Calcium Total Bilirubin AST ALT Alkaline Phosphatase Troponin I 0.06 H B-Natriuretic Peptide Serum Total Protein Albumin Globulin Albumin/Globulin Ratio Digoxin < 0.3 L Departure - Departure Clinical Impression: Atrial fibrillation with rapid ventricular response Dyspnea Qualifiers: Dyspnea type: shortness of breath Qualified Code(s): R06.02 - Shortness of breath; R06.00 - Dyspnea, unspecified; R06.01 - Orthopnea Hypertension Qualifiers: Hypertension type: essential hypertension Qualified Code(s): I10 - Essential (primary) hypertension Time of Disposition: 18:09 Disposition: Admit Patient Condition: Fair Referrals: Mendoza Ma MD [Primary Care Provider] - 1-2 Weeks Home Medications: Ambulatory Orders Furosemide [Lasix] 40 mg PO DAILY 08/26/17 DiphenhydrAMINE HCL [Benadryl] 50 mg PO DAILY 06/29/19 Warfarin Sodium 5 mg PO DAILY 06/29/19 Metoprolol Tartrate 50 mg PO BID #0 07/03/19 Potassium Chloride Tab [Micro-K] 10 meq PO DAILY #30 tab 07/03/19 Valsartan [Diovan] 320 mg PO DAILY #60 tab 07/03/19 Comments: Patient admitted for afib with RVR for further evaluation.
--- NOTE | 2019-07-25 15:21 | RAD ---
EXAM DESCRIPTION: Chest,1 View CLINICAL HISTORY: Cough COMPARISON: Chest radiograph dated July 02, 2019 TECHNIQUE: 1 view radiograph of the chest FINDINGS: Cardiac silhouette shows cardiomegaly with mild central pulmonary vascular congestion. Linear opacity in the bilateral lung bases most likely represent atelectasis. Otherwise, lungs show no confluent infiltrates. Costophrenic angles are sharp. No pneumothorax. No acute osseous abnormality. IMPRESSION: 1. Cardiomegaly with mild central pulmonary vascular congestion. No afia pulmonary edema. 2. Mild bibasilar atelectasis. Otherwise, lungs show no confluent infiltrates. 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
--- NOTE | 2019-07-25 19:45 | HP ---
SUPERVISING PHYSICIAN: Herb Roland MD CHIEF COMPLAINT: Shortness of breath and weakness. HISTORY OF PRESENT ILLNESS: This is a 58-year-old male patient with past medical history of congestive heart failure and atrial fibrillation as well as chronic obstructive pulmonary disease and chronic tobacco abuse who came to the Emergency Room for approximately one day palpitations and shortness of breath. He has had similar symptoms in the past, but was unable to catch his breath and had to come into the Emergency Room. His initial vital signs showed temperature 97.3, heart rate 154, blood pressure 145/115, respiratory rate 30, O2 saturation 94% on room air. An EKG was done and he was in atrial fibrillation with rapid ventricular response and was given 20 mg of Cardizem. His heart rate went down to the one-teens. Lab was done and his CBC was unremarkable. His INR was subtherapeutic at 1.78. His sodium was 137, potassium 3.4, chloride 100, carbon dioxide 26, BUN 18, creatinine 1.18, total bilirubin was 1.5. BNP was 481. Initial troponin was 0.07. His followup troponin was 0.06. His digoxin level was less than 0.3. His chest x-ray showed cardiomegaly with mild central pulmonary vascular congestion, no afia pulmonary edema and mild bibasilar atelectasis. His followup vital signs showed a heart rate in the 60s to 80s. It was irregular. His respiratory rate was down to the mid-20s and I was called for hospital admission. PAST MEDICAL HISTORY: 1. Hyperlipidemia. 2. Hypertension. 3. Atrial fibrillation. 4. Chronic obstructive pulmonary disease. 5. Degenerative joint disease. 6. Chronic low back pain. 7. Impaired fasting glucose. 8. Congestive heart failure of diastolic/systolic etiology. His ejection fraction on his echocardiogram from the end of 2019 was 25% to 30% with global hypokinesis. PAST SURGICAL HISTORY: 1. Lumbar reconstruction surgery. 2. Tonsillectomy. 3. Left hand surgery. OUTPATIENT MEDICATIONS: 1. Albuterol. 2. Furosemide. 3. Metoprolol. 4. Warfarin. 5. Potassium. 6. Losartan. ALLERGIES: LISINOPRIL AND PENICILLIN. 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 He is and he lives alone. He smokes approximately 1/2 to 1 pack of cigarettes daily. He has a previous history of excessive alcohol use, but quit approximately one year ago. He denies any illicit drug use. REVIEW OF SYSTEMS: GENERAL: Positive for fatigue. Negative for fever or weight changes. HEENT: Negative for sinus symptoms, ear pain, vision changes or sore throat. RESPIRATORY: Positive for coughing and shortness of breath. Negative for wheezing. CARDIAC: Positive for palpitations and tachycardia. Negative for chest pain. GASTROINTESTINAL: Negative for nausea, vomiting, diarrhea, constipation. GENITOURINARY: Negative for hematuria, dysuria or polyuria. MUSCULOSKELETAL: Negative for arthralgias, myalgias. SKIN: Negative for lesions or rashes. NEUROLOGIC: Negative for headache, excessive weakness or seizures. PHYSICAL EXAMINATION: VITAL SIGNS: Temperature 97.7. Heart rate 96. Blood pressure 139/97. Respiratory rate 24. O2 saturation 96% on room air. GENERAL: This is a 58-year-old obese male patient who is sitting on the side of his bed. He is in mild respiratory distress. HEENT: Normocephalic, atraumatic. Pupils are equal and reactive. Oropharynx is clear. NECK: Supple without mass. There is no discernible JVD. RESPIRATORY: There are a few scattered crackles at the apices, but otherwise clear to auscultation bilaterally. He is slightly diminished at the bases. CHEST: There is equal rise and fall of the chest with inspiration and expiration. CARDIOVASCULAR: Regular rate and irregular rhythm. He is in atrial fibrillation on the rn cardiac rehab. It is reported that several times he has jumped up to the 100s to one-teens with activity. GASTROINTESTINAL: Abdomen is soft, nondistended, nontender. Bowel sounds are positive. EXTREMITIES: No cyanosis, clubbing. He does have 2+ pitting edema of his lower extremities. Bilateral pedal pulses are palpable at +2. NEUROLOGIC: Awake, alert and oriented times three. Cranial nerves II-XII are grossly intact as tested. SKIN: Warm and dry. LABORATORY: Labs and films are as per history of present illness. IMPRESSION: 1. Atrial fibrillation with RVR. His heart rate got up to the 150s. He is on a beta maite and Coumadin. He was given Cardizem IV in the Emergency Room. 2. Congestive heart failure, diastolic/systolic etiology with ejection fraction of 25% to 30% on his echocardiogram in June of 2019. He does have an elevated BNP and he does have a mild exacerbation. 3. Subtherapeutic INR on Coumadin. 4. Chronic obstructive pulmonary disease without acute exacerbation in a current smoker. 5. Compression fracture of L1, most likely is an older fracture. He has had significant back surgery. 6. Chronic renal insufficiency. 7. Tobacco abuse. 8. Hypertension. 9. Chronic low back pain. 10. Degenerative joint disease. 11. Poor medical compliance. PLAN: The patient has been placed in observation. We will monitor his heart rate over the next day or so. He has an appointment with Dr. Sutherland on Tuesday. For right now, we will continue with his diuretics and antihypertensive. He may need an extra dosing of Lasix. I will repeat his labs and films in the morning. I also started him on Lovenox and will give him an extra dose of his Coumadin if needed. We will discontinue the Lovenox when he is therapeutic on Coumadin. His home medications will be restarted once they have been verified. I discussed smoking cessation and encouraged to follow his medication regime close as well as his primary care physician followup. Hopefully he can be discharged in the next one to two day with close followup with Dr. Sutherland and his primary care physician, Dr. Ma. #[id number] [facility]
[2019-07-25] MEDS ORDERED: ALBUTEROL SULFATE 2.5 MG/3 ML VIAL NEB PRN (20:00)
[2019-07-25] MEDS ORDERED: SODIUM CHLORIDE 0.9% (FLUSH) 10 ML SYG IV PRN (20:00)
[2019-07-25] MEDS ORDERED: ONDANSETRON INJ 4 MG/2 ML VIAL IV PRN (20:00)
[2019-07-25] MEDS ORDERED: NITROGLYCERIN 0.4 MG 25 EA TAB SL PRN (20:00)
[2019-07-25] MEDS: SODIUM CHLORIDE 0.9% (FLUSH) 10 ML SYG IV SCH (21:25)
[2019-07-25] MEDS: METOPROLOL TARTRATE 50 MG TAB PO SCH (21:25)
[2019-07-25] MEDS: ENOXAPARIN SODIUM 40 MG/0.4 ML SYG SUBCU SCH (21:26)
[2019-07-25] MEDS: IPRATROPIUM/ALBUTEROL 3 ML VIAL INH SCH (21:26)
[2019-07-25] MEDS: IV SET AND CAP CHANGE INJ INJ SCH (21:26)
[2019-07-26] MEDS: BENZONATATE PERLES 100 MG CAP PO PRN ×2 (00:12→20:06)
[2019-07-26] MEDS ORDERED: VALSARTAN 80 MG TAB ONE (08:31)
[2019-07-26] MEDS: FUROSEMIDE 40 MG TAB PO SCH (08:39)
[2019-07-26] MEDS: POTASSIUM CHLORIDE 10 MEQ TAB PO SCH (08:39)
[2019-07-26] MEDS: METOPROLOL TARTRATE 50 MG TAB PO SCH ×2 (08:40→20:07)
[2019-07-26] MEDS: SODIUM CHLORIDE 0.9% (FLUSH) 10 ML SYG IV SCH ×2 (08:40→20:07)
[2019-07-26] MEDS ORDERED: VALSARTAN 320 MG PO SCH (09:00)
[2019-07-26] MEDS: IPRATROPIUM/ALBUTEROL 3 ML VIAL INH SCH ×4 (09:14→19:55)
[2019-07-26] MEDS ORDERED: WARFARIN SODIUM 3 MG TAB PO ONE (12:00)
[2019-07-26] MEDS: LOSARTAN POTASSIUM 25 MG TAB PO SCH (12:58)
[2019-07-26] MEDS: WARFARIN SODIUM 5 MG TAB PO SCH (12:59)
[2019-07-26] MEDS: HYDROcodone 5MG/APAP 325MG 1 EA TAB PO PRN ×2 (14:50→23:21)
[2019-07-26] MEDS ORDERED: diltiaZEM HCL TAB 30 MG TAB PO ONE (18:30)
[2019-07-26] MEDS ORDERED: MAGNESIUM SULFATE PREMIX 2GM 2 GM in PREMIX BAG 1 BAG IVPB ONE (18:32)
[2019-07-26] MEDS ORDERED: POTASSIUM CHLORIDE 20 MEQ TAB PO ONE (18:32)
[2019-07-26] MEDS ORDERED: MAGNESIUM SULFATE PREMIX 2GM 50 ML IVPB ONE (19:38)
[2019-07-26] MEDS: ENOXAPARIN SODIUM 40 MG/0.4 ML SYG SUBCU SCH (20:06)
--- NOTE | 2019-07-26 20:35 | PN ---
DATE: 07/26/19 SUPERVISING PHYSICIAN: Herb Roland M.D. SUBJECTIVE: The patient is sitting up on the side of his bed. He had some complaints of some mild shortness of breath and his heart rate was in the 150s to 160s in atrial fibrillation. He did feels some palpitations. He was given some Cardizem IV and shortly after his heart rate dropped to the 110s. Otherwise denies any chest pain, nausea or vomiting. OBJECTIVE: VITAL SIGNS: Temperature 98, heart rate 110, it did get as high as 150s. Blood pressure was 162/98, respiratory rate 20, O2 saturation 96% on room air. RESPIRATORY: Essentially clear to auscultation bilaterally. CARDIAC: Tachycardic rate, irregular rhythm. Atrial fibrillation on the cardiac surgeon. GASTROINTESTINAL: Abdomen is soft, nondistended, non-tender. Bowel sounds are positive. NEUROLOGIC: He is awake, alert and oriented times three. LABORATORY: CBC is unremarkable. INR continues to be subtherapeutic at 1.6. Electrolytes are basically within normal limits with the exception of his potassium is slightly low at 3.5 and bilirubin has improved to 1.2. Magnesium was also slightly low at 1.7. All other labs and films have been reviewed via the EMR. ASSESSMENT: 1. Atrial fibrillation with rapid ventricular response. His heart rate initially was in the 150s in the Emergency Room. He was given Cardizem IV in the Emergency Room. His rate dropped to the 100s. Today it again went up to the 150s. He was given another dose of Cardizem IV and now it is in the 100s. He is routinely on a beta maite as well as Coumadin. 2. Congestive heart failure, diastolic/systolic etiology with ejection fraction of 25% to 30% on his echocardiogram in June of 2019. He does have an elevated BNP and he does have a mild exacerbation. 3. Subtherapeutic INR on Coumadin. 4. Chronic obstructive pulmonary disease without acute exacerbation in a current smoker. 5. Compression fracture of L1, most likely is an older fracture. He has had significant back surgery. 6. Chronic renal insufficiency. 7. Tobacco abuse. 8. Hypertension. 9. Chronic low back pain. 10. Degenerative joint disease. 11. Poor medical compliance. PLAN: We will continue present supportive care. I have given him some oral potassium and magnesium supplementation. He received the IV Cardizem and I will start him on short-acting Cardizem to control his rate. His lab will be repeated in the morning. He has an appointment with Dr. Sutherland on Tuesday. He most likely will need to be discharged on some Cardizem. I have also ordered an INR for in the morning. He will stay on his Lovenox until his INR is therapeutic. We again discussed smoking cessation. Will continue to monitor closely and follow as needed. #[id number] [facility]
[2019-07-26] MEDS ORDERED: CHLORPHENIRAMINE W/HYDROCODONE 5 ML UD PO PRN (23:04)
[2019-07-27] MEDS: diltiaZEM HCL TAB 30 MG TAB PO SCH ×4 (00:26→18:37)
[2019-07-27] MEDS: HYDROcodone 5MG/APAP 325MG 1 EA TAB PO PRN ×2 (05:48→13:03)
--- NOTE | 2019-07-27 06:43 | RAD ---
CHEST, TWO VIEW, XR CLINICAL HISTORY: Atrial fibrillation with rapid ventricular response. COMPARISON: July 2019. TECHNIQUE: Frontal and lateral Chest. FINDINGS: Heart is upper normal in size. Mild pulmonary vascular congestion. No edema, consolidation, pleural fluid. Lungs are hyperinflated. Lower thoracic fusion hardware noted. Unremarkable soft tissues. IMPRESSION: 1. Mild pulmonary vascular congestion. Hyperinflation. Electronically signed by: Mally Roblero DO 07/27/2019 6:41 AM WALKING DRAGLINE OPERATOR
[2019-07-27] MEDS ORDERED: VALSARTAN 80 MG TAB PO SCH (09:00)
[2019-07-27] MEDS: IPRATROPIUM/ALBUTEROL 3 ML VIAL INH SCH ×4 (09:12→20:52)
[2019-07-27] MEDS: POTASSIUM CHLORIDE 10 MEQ TAB PO SCH (09:52)
[2019-07-27] MEDS: SODIUM CHLORIDE 0.9% (FLUSH) 10 ML SYG IV SCH ×2 (09:53→21:41)
[2019-07-27] MEDS: FUROSEMIDE 40 MG TAB PO SCH (09:53)
[2019-07-27] MEDS: METOPROLOL TARTRATE 50 MG TAB PO SCH ×2 (09:53→21:40)
[2019-07-27] MEDS: LOSARTAN POTASSIUM 25 MG TAB PO SCH (09:53)
[2019-07-27] MEDS ORDERED: WARFARIN SODIUM 2 MG TAB ONE (12:52)
[2019-07-27] MEDS: WARFARIN SODIUM 5 MG TAB PO SCH (13:00)
[2019-07-27] MEDS ORDERED: WARFARIN SODIUM 2 MG TAB PO ONE (13:07)
[2019-07-27] MEDS: BENZONATATE PERLES 100 MG CAP PO PRN (16:43)
[2019-07-27] MEDS: ENOXAPARIN SODIUM 40 MG/0.4 ML SYG SUBCU SCH (21:40)
[2019-07-28] MEDS: diltiaZEM HCL TAB 30 MG TAB PO SCH ×2 (00:13→05:35)
[2019-07-28] MEDS ORDERED: TEMAZEPAM 15 MG CAP PO ONE (00:21)
[2019-07-28] MEDS: BENZONATATE PERLES 100 MG CAP PO PRN (05:40)
--- NOTE | 2019-07-28 07:49 | RAD ---
CHEST, TWO VIEW, XR CLINICAL HISTORY: Congestive heart failure. COMPARISON: 07/27/2019 TECHNIQUE: Frontal and lateral Chest. FINDINGS: Cardiac size is upper normal. No consolidation. Mild pulmonary vascular congestion. No edema or consolidation. Pleural spaces are clear. Lungs are hyperinflated. Moderate lower thoracic spondylosis. Lower thoracic fusion hardware is partially imaged. IMPRESSION: 1. Mild cardiomegaly. Hyperinflation. No acute disease. Electronically signed by: Mally Roblero DO 07/28/2019 7:48 AM [facility]
[2019-07-28] MEDS: IPRATROPIUM/ALBUTEROL 3 ML VIAL INH SCH ×4 (08:42→20:27)
--- NOTE | 2019-07-28 10:39 | PN ---
SUPERVISING PHYSICIAN: Herb Roland MD DATE: 07/27/19 SUBJECTIVE: The patient is sitting up on the side of his bed. He had no complaints of chest pain, palpitations, tachycardia, nausea or vomiting. He did say he has had cough that most of the time is dry and Tessalon Perles do help. He also had concerns that he filed for Medicare/Medicaid about 2 years ago and has not heard anything and asked if I would followup on that. OBJECTIVE: VITAL SIGNS: Temperature 97.8. Heart rate 74. Blood pressure 139/97. Respiratory rate 20. O2 93# on room air. RESPIRATORY: Essentially clear to auscultation bilaterally. CARDIAC: Regular rate, irregular rhythm. Atrial fibrillation on the outpatient clerk. GASTROINTESTINAL: Abdomen is soft, nondistended, nontender. Bowel sounds are positive. EXTREMITIES: No cyanosis, clubbing or edema. LABORATORY: CBC is basically unremarkable. INR is slightly subtherapeutic at 1.96. Electrolytes are basically within normal limits with the exception of potassium low at 3.1. Chest x-ray shows mild pulmonary vascular congestion with hyperinflation.All other labs and films have been reviewed via the EMR. ASSESSMENT: 1. Atrial fibrillation with rapid ventricular response. His heart rate initially was in the 150s in the Emergency Room. He was given Cardizem IV in the Emergency Room. Rate dropped to the 100s. Today it again went up to the 150s. He was given another dose of Cardizem IV and now it is in the 100s. He is routinely on a beta maite as well as Coumadin. 2. Congestive heart failure, diastolic/systolic etiology with ejection fraction of 25% to 30% on his echocardiogram in June of 2019. He does have an elevated BNP and he does have a mild exacerbation. 3. Subtherapeutic INR on Coumadin. 4. Chronic obstructive pulmonary disease without acute exacerbation in a current smoker. 5. Compression fracture of L1, most likely is an older fracture. He has had significant back surgery. 6. Chronic renal insufficiency. 7. Tobacco abuse. 8. Hypertension. 9. Chronic low back pain. 10. Degenerative joint disease. 11. Poor medical compliance. PLAN: We will continue present supportive care. His heart rate has not gone up since I started him on the Cardizem. Hopefully tomorrow morning, we can discontinue the short-acting Cardizem and started him on the extended release Cardizem. I have also given him an extra dose of Lasix. I have ordered lab and chest x-ray in the morning. He will also have a PT/INR as he is slightly slightly subtherapeutic on his INR. Potassium has been ordered for supplementation. We will continue to monitor the patient closely and follow as needed. #[id number]
[2019-07-28] MEDS: FUROSEMIDE 40 MG TAB PO SCH (10:56)
[2019-07-28] MEDS: METOPROLOL TARTRATE 50 MG TAB PO SCH ×2 (10:56→20:44)
[2019-07-28] MEDS: SODIUM CHLORIDE 0.9% (FLUSH) 10 ML SYG IV SCH ×2 (10:57→20:44)
[2019-07-28] MEDS: LOSARTAN POTASSIUM 25 MG TAB PO SCH (10:57)
[2019-07-28] MEDS: POTASSIUM CHLORIDE 10 MEQ TAB PO SCH (10:57)
[2019-07-28] MEDS ORDERED: FUROSEMIDE INJ 40 MG/4 ML VIAL IV ONE (11:50)
[2019-07-28] MEDS ORDERED: WARFARIN SODIUM 2 MG TAB ONE (12:29)
[2019-07-28] MEDS ORDERED: WARFARIN SODIUM 2 MG TAB PO ONE (12:53)
[2019-07-28] MEDS: WARFARIN SODIUM 5 MG TAB PO SCH (13:10)
[2019-07-28] MEDS ORDERED: TEMAZEPAM 15 MG CAP PO PRN (16:28)
[2019-07-28] MEDS: IV SET AND CAP CHANGE INJ INJ SCH (20:15)
[2019-07-28] MEDS: ENOXAPARIN SODIUM 40 MG/0.4 ML SYG SUBCU SCH (20:44)
[2019-07-29] MEDS: IPRATROPIUM/ALBUTEROL 3 ML VIAL INH SCH ×2 (08:33→13:18)
[2019-07-29] MEDS: FUROSEMIDE 40 MG TAB PO SCH (08:52)
[2019-07-29] MEDS: LOSARTAN POTASSIUM 25 MG TAB PO SCH (08:52)
[2019-07-29] MEDS: POTASSIUM CHLORIDE 10 MEQ TAB PO SCH (08:52)
[2019-07-29] MEDS: METOPROLOL TARTRATE 50 MG TAB PO SCH (08:52)
[2019-07-29] MEDS: SODIUM CHLORIDE 0.9% (FLUSH) 10 ML SYG IV SCH (08:53)
[2019-07-29 09:34] VITALS: TEMP 97.9; O2SAT 95
--- NOTE | 2019-07-29 10:07 | PN ---
DATE: 07/28/2019 SUPERVISING PHYSICIAN: Herb Roland MD SUBJECTIVE: The patient is lying in bed. He has had no further complaints of palpitations or tachycardia, no shortness of breath. OBJECTIVE: VITAL SIGNS: Temperature 98. Heart rate 78. Blood pressure 120/76. Respiratory rate 20. O2 97% on room air. RESPIRATORY: Essentially clear to auscultation bilaterally. CARDIAC: Regular rate, irregular rhythm. GASTROINTESTINAL: Abdomen is soft, nondistended, nontender. Bowel sounds are positive. NEURO: He is awake, alert, and oriented x3. LABORATORY: CBC is basically unremarkable. His INR is 2.88. Chemistries are unremarkable except his potassium is low at 3.2. Chest x-ray -Mild cardiomegaly with hyperinflation and no acute disease. All other labs and films have been reviewed via the EMR. ASSESSMENT: 1. Atrial fibrillation with rapid ventricular response. His heart rate initially was in the 150s in the Emergency Room. He was given Cardizem IV in the Emergency Room. Rate dropped to the 100s. Today it again went up to the 150s. He was given another dose of Cardizem IV and now it is in the 100s. He is routinely on a beta maite as well as Coumadin. 2. Congestive heart failure, diastolic/systolic etiology with ejection fraction of 25% to 30% on his echocardiogram in June of 2019. He does have an elevated BNP and he does have a mild exacerbation. 3. Subtherapeutic INR on Coumadin. 4. Chronic obstructive pulmonary disease without acute exacerbation in a current smoker. 5. Compression fracture of L1, most likely is an older fracture. He has had significant back surgery. 6. Chronic renal insufficiency. 7. Tobacco abuse. 8. Hypertension. 9. Chronic low back pain. 10. Degenerative joint disease. 11. Poor medical compliance. PLAN: We will continue present supportive care. His heart rate has been consistent in the 70s and 80s. He has also had stabilized blood pressures including his diastolic blood pressure. Previously he had diastolic blood pressures that were in the 100s and now are consistently in the 70s. This morning, I started him on the extended release Cardizem and so far his blood pressures as well as his heat rate are controlled. I ordered a PT/INR for tomorrow and he should be able to be discharged tomorrow with close followup with Dr. Ma. He also has an appointment with Dr. Sutherland and we will continue the patient closely and follow as needed. #[id number] [facility]
[2019-07-29] MEDS ORDERED: WARFARIN SODIUM 3 MG TAB PO SCH (12:00)
[2019-07-29] MEDS ORDERED: WARFARIN SODIUM 2 MG TAB PO SCH (12:00)
[2019-07-29 13:44] VITALS: BP 142/85
--- NOTE | 2019-07-31 13:48 | DS ---
SUPERVISING PHYSICIAN: Herb Roland MD DISCHARGE DIAGNOSIS: 1. Atrial fibrillation with rapid ventricular response. His heart rate initially was in the 150s in the Emergency Room. He was given Cardizem IV in the Emergency Room. Rate dropped to the 100s. Today it again went up to the 150s. He was given another dose of Cardizem IV and now it is again in the 100s. He is routinely on a beta beta maite well as Coumadin. 2. Congestive heart failure, diastolic/systolic etiology with ejection fraction of 25% to 30% on his echocardiogram in June of 2019. He does have an elevated BNP and he does have a mild exacerbation. 3. Subtherapeutic INR on Coumadin. 4. Chronic obstructive pulmonary disease without acute exacerbation in a smoker. 5. Compression fracture of L1, most likely is an older fracture. He has had significant back surgeries. 6. Chronic renal insufficiency. 7. Tobacco abuse. 8. Hypertension. 9. Chronic low back pain. 10. Degenerative joint disease. 11. Poor medical compliance. HISTORY OF PRESENT ILLNESS: This is a 58-year-old male patient with past medical history of congestive heart failure and atrial fibrillation as well as chronic obstructive pulmonary disease and chronic tobacco abuse who came to the Emergency Room after approximately one day palpitations and shortness of breath. He has had similar symptoms in the past. At this admission, he was unable to catch his breath and came to the Emergency Room. His initial vital signs showed temperature 97.3, heart rate 154, blood pressure 145/115, respiratory rate 30, O2 saturation 94% on room air. An EKG was done and he was in atrial fibrillation with rapid ventricular response and was given 20 mg of Cardizem IV. His heart rate went down to the one-teens. Lab was done and his CBC was unremarkable. His INR was subtherapeutic at 1.78. His sodium was 137, potassium 3.4, chloride 100, carbon dioxide 26, BUN 18, creatinine 1.18, total bilirubin was 1.5. BNP was 481. Initial troponin was 0.07. His followup troponin was 0.06. His digoxin level was less than 0.3 although his digoxin was discontinued at his last hospital stay. His chest x-ray showed cardiomegaly with mild central pulmonary vascular congestion, no afia pulmonary edema and he had mild bibasilar atelectasis. His followup vital signs showed a heart rate in the 60s to 80s. It was irregular. He was in atrial fibrillation. His respiratory rate was down to the mid-20s and he was admitted to the hospital in stable condition. HOSPITAL COURSE: He was initially placed in observation. His heart rate was monitored over the next day or so. He does have an appointment with Dr. Sutherland on Tuesday. We will continue his diuretics and antihypertensives. He was given Lovenox due to the low INR and daily checked his INR. It took several days for his INR to become therapeutic. He has a past history of difficulty getting his INR stabilized. He would most likely benefit from being on Eliquis or Xarelto. We also discussed smoking cessation as well as following his medication regimen closely. He continued to have some shortness of breath and occasionally his heart rate went up into the 150s and 160s and continued in atrial fibrillation and he had palpitations. He was again given some Cardizem IV and shortly thereafter his heart rate dropped into the one-teens. He did have to have several supplemental potassium and magnesium. I also started him on 60 mg of Cardizem q.6h. to help control his rate. His Cardizem 60 was transitioned to 240 Cardizem LA. He was also given an extra dose of IV Lasix. His blood pressures stabilized better than they have since his last admission as he had quite elevated diastolic blood pressures and they are now consistently in the 70s and 80s. He was given a dose of Coumadin yesterday and today, it is supratherapeutic, so I will hold his Coumadin for one day and we will discharge him on 4 mg of Coumadin. He will be discharged home today in stable condition. LABORATORY: CBC was mostly unremarkable throughout his stay. His INR started at 1.78 and went to 1.6. After increasing his dose, it went to 1.96 and was at 2.88. His dosing was reduced, but it continued to elevate at 3.76. His sodium was stable at 139. He required potassium supplementation daily. Today, his potassium was 3.2 and he again go oral potassium. His magnesium was initially low at 1.7. He received some IV magnesium and it has been stable at 1.9. Bilirubin initially was high at 1.5. It is now 1.2. The remainder of his liver function tests were normal. RADIOLOGY: Initial chest x-ray is per the history of present illness. Today's chest x-ray showed mild cardiomegaly, hyperinflation with no acute disease. DISCHARGE PLAN: The patient will be discharged in stable condition. He is to resume his previous medications as well as his previous diet. He is to make a followup appointment with Dr. Ma in the next one to two weeks and he has a followup appointment on Tuesday with Dr. Sutherland. In addition to his routine medications, I have sent him home on Tylenol with codeine, Tessalon Perles, Diltiazem 240 daily, Restoril at bedtime and warfarin 4 mg daily. He is to repeat his PT/INR on Tuesday or Tuesday. He is to return to the hospital or to Dr. Ma for any problems or complications. DISCHARGE MEDICATIONS: 1. Furosemide. 2. Benadryl. 3. Micro-K. 4. Metoprolol tartrate. 5. Losartan. 6. Tessalon Perles. 7. Cardizem LA. 8. Temazepam. 9. Warfarin 4 mg daily. 10. Acetaminophen with codeine. #[id number] [facility]
== END 2019-07-29 16:45 | disposition home or self-care (01) ==
LOC: ER 14:16 → MS 19:44
PROVIDERS: ADMIT Nurse Practitioner Acute Care; ATTEND Nurse Practitioner Acute Care
DX: I48.20 Chronic atrial fibrillation, unspecified (principal); I13.0 Hypertensive heart and chronic kidney disease with heart failure and stage 1 through stage 4 chronic kidney disease, or unspecified chronic kidney disease; I50.43 Acute on chronic combined systolic (congestive) and diastolic (congestive) heart failure; N18.9 Chronic kidney disease, unspecified; R79.1 Abnormal coagulation profile; J44.9 Chronic obstructive pulmonary disease, unspecified; F17.210 Nicotine dependence, cigarettes, uncomplicated; E87.6 Hypokalemia; E83.42 Hypomagnesemia; G89.29 Other chronic pain; M48.56XA Collapsed vertebra, not elsewhere classified, lumbar region, initial encounter for fracture; M47.816 Spondylosis without myelopathy or radiculopathy, lumbar region; E78.5 Hyperlipidemia, unspecified; Z91.19 Patient's noncompliance with other medical treatment and regimen; Z79.01 Long term (current) use of anticoagulants; Z79.899 Other long term (current) drug therapy; Z88.0 Allergy status to penicillin; Z88.8 Allergy status to other drugs, medicaments and biological substances
CPT/HCPCS: 96365; 96375 ×2; 96376; 96372 ×4; J7611; J1940; J7030; J1650 ×4; J7620 ×14; J3475; 80048; 80053 ×4; 36415 ×5; 85025 ×5; 80162; 83735 ×4; 85730; 85610 ×5; 84484 ×2; 83880; 71045; 71046 ×2; 94640 ×15; 94760 ×14; 99406; 99285; 93005; G0378

== ENCOUNTER 2019-10-02 13:17 | Inpatient (IN) | payer SELFPAY ==
--- NOTE | 2019-10-02 13:40 | ED.PDOC ---
History of Present Illness - General Chief Complaint: Cardiovascular Problem Stated Complaint: Chest pain Time Seen by Provider: 10/02/19 13:34 Source: patient, RN notes reviewed, Vital Signs reviewed Exam Limitations: no limitations - History of Present Illness Initial Comments: This is a 59-year-old male with history of A. fib, chronic congestive heart failure. He has been admitted several times over the last few months for volume overload related to congestive heart failure. He takes warfarin for anticoagulation. He was recently referred by his acid extractor for pacer/ defibrillator placement, but this has not been performed yet. He states his Lasix dose was recently changed, but cannot remember whether it was increased or decreased. He reports increased shortness of breath, exertional dyspnea, as well as orthopnea and leg swelling. He states this is similar to previous episodes of volume overload. Severity/Quality: moderate Location: substernal Chest Pain Radiation: no radiation Activities at Onset: none Worsening Factors: movement Aspirin Treatment Today: no aspirin today Associated Symptoms: shortness of breath Allergies/Adverse Reactions: Allergies Lisinopril Allergy (Intermediate, Verified 10/02/19 13:44) Other tongue swelling Penicillins Adverse Reaction (Intermediate, Verified 10/02/19 13:44) Diarrhea Home Medications: Ambulatory Orders Furosemide [Lasix] 40 mg PO DAILY 08/26/17 DiphenhydrAMINE HCL [Benadryl] 50 mg PO DAILY 06/29/19 Metoprolol Tartrate 50 mg PO BID #0 07/03/19 Potassium Chloride Tab [Micro-K] 10 meq PO DAILY #30 tab 07/03/19 Losartan Potassium 100 mg PO DAILY 07/26/19 Benzonatate 200 mg PO TID PRN #30 cap 07/27/19 Acetaminophen W/ Codeine [Tylenol/Codeine #4 300-60 mg] 1 ea PO Q4HR #30 tab 07/29/19 Diltiazem HCl Coated Beads [Cardizem LA] 240 mg PO DAILY #30 tab 07/29/19 Temazepam [Restoril] 15 mg PO BEDTIME PRN #30 cap 07/29/19 Warfarin Sodium [Coumadin] 4 mg PO DAILY #30 tab 07/29/19 Review of Systems - Review of Systems Constitutional: States: no symptoms reported. Denies: chills, fever EENTM: Denies: ear pain, nose congestion, throat pain Respiratory: States: orthopnea, short of breath. Denies: cough, wheezing Cardiology: States: chest pain, edema. Denies: palpitations Gastrointestinal/Abdominal: Denies: abdominal pain, diarrhea, nausea, vomiting Musculoskeletal: Denies: back pain, joint pain, muscle pain, neck pain Skin: States: no symptoms reported Neurological: States: no symptoms reported Endocrine: States: no symptoms reported Hematologic/Lymphatic: States: no symptoms reported Past Medical History (General) - Patient Medical History Hx Seizures: No Hx Stroke: No Hx Dementia: No Hx Asthma: Yes Hx of COPD: No Hx Cardiac Disorders: Yes - Atrial fib Hx Congestive Heart Failure: No Hx Pacemaker: No Hx Hypertension: Yes Hx Thyroid Disease: No Hx Diabetes: No Hx Gastroesophageal Reflux: No Hx Renal Disease: No Hx Cancer: No Hx of HIV: No Hx Hepatitis C: No Hx MRSA: No - Vaccination History Hx Tetanus, Diphtheria Vaccination: No Hx Influenza Vaccination: No Hx Pneumococcal Vaccination: No - Social History Hx Tobacco Use: Yes Hx Alcohol Use: No Hx Substance Use: No Hx Substance Use Treatment: No Hx Depression: No Hx Physical Abuse: No Hx Emotional Abuse: No - Female History Patient : No Family Medical History - Family History Father Living Status: Age at (years of age): 34 Cause of : blunt head trama Hx Cardiac Disease: Yes Hx Family;Other: kidney disease Paternal Grandparents Living Status: Cause of : kidney disease Grandparents Living Status: Hx Cardiac Disease: Yes Mother Family History: Unknown Living Status: Still Living Hx Cardiac Disease: Yes Hx Family;Other: Dementia Physical Exam - Physical Exam General Appearance: Alert, Comfortable, Obese Eyes, Ears, Nose, Throat Exam: PERRL/EOMI, normal ENT inspection, pharynx normal Neck: non-tender, full range of motion, supple, normal inspection Respiratory: chest non-tender, crackles, other - Tachypneic Cardiovascular/Chest: no murmur, tachycardia, irregularly irregular Gastrointestinal/Abdominal: non tender, soft Rectal Exam: deferred Extremity: non-tender, pedal edema Neurologic: no motor/sensory deficits, alert, normal mood/affect, oriented x 3 Skin Exam: normal color, warm/dry Lymphatic: no adenopathy Progress - Progress Progress: 10/02/19 13:58 Aspirin was not given on arrival due to current warfarin use. 10/02/19 15:[address] Sutherland, cardiology. Reviewed initial EKG, labs, current vital signs, chest x-ray findings. He agrees elevated troponin is likely related to underlying cardiomyopathy and A. fib with RVR, very low suspicion for ACS. His troponin is elevated similar to his previous admission. He agrees the patient can be admitted here for diuresis and rate control. 10/02/19 16:37 Discussed with Osmar Loya, nurse practitioner salesperson surgical appliances. Will admit. - Results/Orders Results/Orders: EKG interpreted by me at 1327. A. fib with RVR, rate 123, prolonged QTC at 495. Occasional PVCs. Nonspecific ST and T wave changes. Chest x-ray reviewed personally. Shows cardiomegaly, probable mild pulmonary edema with cephalization EXAM DESCRIPTION: Chest,1 View CLINICAL HISTORY: chest pain COMPARISON: July 28, 2019 FINDINGS: The cardiac silhouette is enlarged, not significantly changed from the prior study. Mediastinal contours are otherwise unremarkable. The central bronchovascular markings are indistinct. No airspace consolidation or pleural effusion. There is no pneumothorax or acute fracture. IMPRESSION: Cardiomegaly with central pulmonary vascular congestion. Viral or other atypical edema could have a similar appearance. Electronically signed by: Kermit Hyman MD 10/02/2019 2:16 PM CDT - 1604 Departure - Departure Clinical Impression: Atrial fibrillation with rapid ventricular response, Congestive heart failure, Elevated troponin, Elevated INR Disposition: Admit Patient Condition: Fair Departure Forms: ED Discharge - Pt. Copy, Patient Portal Self Enrollment Instructions: DI for Chest Pain Referrals: Mendoza Ma MD [Primary Care Provider] - 1-5 Days Home Medications: Ambulatory Orders Furosemide [Lasix] 40 mg PO DAILY 08/26/17 DiphenhydrAMINE HCL [Benadryl] 50 mg PO DAILY 06/29/19 Metoprolol Tartrate 50 mg PO BID #0 07/03/19 Potassium Chloride Tab [Micro-K] 10 meq PO DAILY #30 tab 07/03/19 Losartan Potassium 100 mg PO DAILY 07/26/19 Benzonatate 200 mg PO TID PRN #30 cap 07/27/19 Acetaminophen W/ Codeine [Tylenol/Codeine #4 300-60 mg] 1 ea PO Q4HR #30 tab 07/29/19 Diltiazem HCl Coated Beads [Cardizem LA] 240 mg PO DAILY #30 tab 07/29/19 Temazepam [Restoril] 15 mg PO BEDTIME PRN #30 cap 07/29/19 Warfarin Sodium [Coumadin] 4 mg PO DAILY #30 tab 07/29/19 Critical Care Note - Critical Care Note Total Time (mins): 33 Comments: Evidence of cardiac ischemia and cardiac failure requiring IV rate control and diuresis. Time was spent ordering labs/studies/medications, reviewing labs, rechecks, discussions with consultants,.
[2019-10-02] MEDS ORDERED: FUROSEMIDE INJ 40 MG/4 ML VIAL IV ONE (13:41)
[2019-10-02] MEDS ORDERED: SODIUM CHLORIDE 0.9% (FLUSH) 10 ML SYG IV PRN ×2 (13:41→18:22)
[2019-10-02] MEDS ORDERED: NITROGLYCERIN 0.4 MG 25 EA TAB SL ONE (13:41)
[2019-10-02] MEDS ORDERED: ONDANSETRON INJ 4 MG/2 ML VIAL IV ONE (13:41)
--- NOTE | 2019-10-02 14:18 | RAD ---
EXAM DESCRIPTION: Chest,1 View CLINICAL HISTORY: chest pain COMPARISON: July 28, 2019 FINDINGS: The cardiac silhouette is enlarged, not significantly changed from the prior study. Mediastinal contours are otherwise unremarkable. The central bronchovascular markings are indistinct. No airspace consolidation or pleural effusion. There is no pneumothorax or acute fracture. IMPRESSION: Cardiomegaly with central pulmonary vascular congestion. Viral or other atypical edema could have a similar appearance. Electronically signed by: Kermit Hyman MD 10/02/2019 2:16 PM CDT
--- NOTE | 2019-10-02 16:57 | HP ---
SUPERVISING PHYSICIAN: Forrest Hendricks MD CHIEF COMPLAINT: Shortness of breath, palpitations. HISTORY OF PRESENT ILLNESS: Mr. Lopez is a 59-year-old male patient of Dr. Sutherland' with a history of atrial fibrillation and chronic congestive heart failure. He has been admitted multiple times for CHF exacerbation and is on warfarin for anticoagulation. He has also been recently referred to cardiology for pacer/defibrillator placement, but has not been completed as of yet. He endorsed that his Lasix dosage had been changed recently, but he cannot remember if it was increased or decreased. The patient has very poor medical compliance, he does not remember his medications and states he forgets to take them periodically. He presented to the Emergency Room today with increasing shortness of breath and exertional dyspnea with orthopnea as well as bilateral lower extremity swelling. He endorses that the current episode is similar to previous episodes he was admitted for fluid overload. On initial presentation, he was showing atrial fibrillation with rapid ventricular response with a heart rate of 123. He was given IV Cardizem which did result in decrease in his heart rate and better control into the 70s. His initial labs did show a slight bump in his troponin at 0.06, but he was not really complaining of any chest pain other than just palpitations and some chest tightness with shortness of breath. The ER physician, Dr. Mars, consulted with Dr. Sutherland, the patient's road conductor, and he recommended the patient could remain at [place] if he felt like the bump in troponin was related to his congestive heart failure exacerbation and underlying cardiomyopathy with atrial fibrillation with a low suspicious for acute coronary syndrome. On last admission, he had several bumps in his troponin. He has been given Lasix and is now going to be admitted for continuation of treatment of acute congestive heart failure exacerbation with atrial fibrillation with rapid ventricular response. He was admitted in stable condition. PAST MEDICAL HISTORY: 1. Atrial fibrillation on metoprolol, Cardizem and warfarin for anticoagulation. 2. Hyperlipidemia. 3. Hypertension. 4. Chronic obstructive pulmonary disease. 5. Degenerative joint disease. 6. Chronic low back pain. 7. Congestive heart failure with diastolic/systolic etiology. Last echocardiogram showed ejection fraction in late 2019 of 25% to 30% with global hypokinesis. PAST SURGICAL HISTORY: 1. Lumbar reconstruction surgery. 2. Tonsillectomy. 3. Left hand surgery. OUTPATIENT MEDICATIONS: 1. Warfarin 4 mg daily. 2. Restoril 15 mg at bedtime p.r.n. 3. Potassium chloride 10 mEq daily. 4. Metoprolol 50 mg b.i.d. 5. Lasix 40 mg daily. 6. Benadryl 50 mg daily. 7. Cardizem LA 240 mg daily. ALLERGIES: LISINOPRIL. FAMILY HISTORY: Noncontributory. 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 He smokes 1 to 1-1/2 packs of cigarettes daily. He has a history of previous excessive alcohol use, but quit about a year previously and he denies any illicit drug use. REVIEW OF SYSTEMS: CONSTITUTIONAL: Positive for generalized fatigue, but negative for fever or weight changes. HEENT: Negative for sore throats, earaches, nasal congestion, vision changes. RESPIRATORY: Positive for cough and shortness of breath. Negative for wheezing. He does have orthopnea and exertional dyspnea. CARDIOVASCULAR: Positive for palpitations, tachycardia. Negative for any actual chest pains or syncopal episodes. GENITOURINARY: Negative for dysuria, hematuria, polyuria. MUSCULOSKELETAL: Negative for arthralgias, myalgias. SKIN: Negative for lesions, rashes or unexplained changes. NEUROLOGIC: Negative for headaches, excessive weakness, seizures, ataxia or other focal neurologic deficits. HEMATOLOGICAL: Denies any unexplained bleeding, easy bruising or transfusion reactions. PHYSICAL EXAMINATION: VITAL SIGNS: Heart rate 127, showing atrial fibrillation on monitor. Blood pressure 151/100. Respirations 30 to 32. O2 saturation initially of 95% on room air. Admission weight 127.6 kg. GENERAL: The patient is resting comfortably, appears to be in no acute distress. He is alert. HEENT: Tympanic membranes clear bilaterally. Oropharynx is pink, moist without any lesions. NECK: Supple, nontender with full range of motion. Some slight jugular venous distention noted. RESPIRATORY: The patient was tachypneic with crackles noted bilaterally, more so on the posterolateral aspect, but no wheezing or rales. CARDIOVASCULAR: Slightly irregular rate and rhythm without any appreciable murmurs, gallops, or rubs. ABDOMEN: Obese, but soft, nontender. Positive bowel sounds. EXTREMITIES: There is no cyanosis, clubbing. There is trace of pedal edema. NEUROLOGIC: Cranial nerves II-XII are grossly intact. Facial features are symmetrical. Extraocular movements are within normal limits. There is no nystagmus noted. The patient is alert and oriented times three. SKIN: Warm, pink and dry. LABORATORY: White count 9,100, hemoglobin 16.4, hematocrit 49.9, platelet count 177,000, differential without al followup shift. Coagulation studies did show an elevated INR of 4.9. Chemistries show sodium 143, potassium 3.4, otherwise electrolytes within normal limits. Creatinine was slightly elevated at 1.56 from his baseline around 0.92 to 1. Phosphorous and magnesium normal. Total bilirubin slightly elevated at 1. Other liver functions were within normal limits. Initial troponin was 0.06 with BNP 494. RADIOLOGY: Chest x-ray per radiologic interpretation shows cardiomegaly with central pulmonary vascular congestion, viral or other atypical edema could have similar appearance. Please see that report for details. 12-lead EKG showed atrial fibrillation with rate of 127. ASSESSMENT: 1. Acute decompensated heart failure with last echocardiogram noted 07/01/19 with ejection fraction 25% to 30%, etiology cardiomyopathy with elevated BNP on admission. 2. Hypertensive urgency, exacerbating #1. 3. Atrial fibrillation with rapid ventricular response. 4. Supratherapeutic INR, possibly related to taking his Coumadin prior to coming to the Emergency Room. 5. Mild electrolyte imbalance with hypokalemia. 6. Renal insufficiency with probable prerenal azotemia due to Lasix with baseline creatinine being around 1 to 1.1. 7. Elevated troponin, probably due to acute exacerbation of congestive heart failure with the patient denying any actual chest pains. 8. History of hypertension. 9. Hyperlipidemia. 10. History of chronic obstructive pulmonary disease with no actual signs of exacerbation. 11. Degenerative joint disease with chronic back pain. PLAN: Mr. Lopez is going to be admitted for congestive heart failure exacerbation and atrial fibrillation with rapid ventricular response. He was given Cardizem in the Emergency Room and has good control of his heart rate prior to admission. The patient is not very knowledgeable of his medications. He is not sure if he missed a dose of his Cardizem or metoprolol. Given that he had good control with Cardizem, we will go ahead and make sure he did have a dose of Cardizem p.o. along with his metoprolol tonight to continue ventricular control. I did put him on a nitro patch to help reduce some of his free load. He will get supplemental oxygen as needed. We will plan to repeat labs and chest x-ray in the morning. We will diurese him with Lasix 40 mg IV q.12h. with close watch on his I&Os. I anticipate his length of stay to be at least two to three days. Until the patient can transition to outpatient management, we will continue to monitor and treat as needed. #[id number] [facility]
[2019-10-02] MEDS ORDERED: ONDANSETRON INJ 4 MG/2 ML VIAL IV PRN (18:22)
[2019-10-02] MEDS ORDERED: NITROGLYCERIN 0.4 MG 25 EA TAB SL PRN (18:22)
[2019-10-02] MEDS ORDERED: MAGNESIUM HYDROXIDE 30 ML UD PO PRN (18:22)
[2019-10-02] MEDS ORDERED: ACETAMINOPHEN 325 MG TAB PO PRN (18:22)
[2019-10-02] MEDS ORDERED: TEMAZEPAM 15 MG CAP PO PRN (18:25)
[2019-10-02] MEDS ORDERED: IV SET AND CAP CHANGE INJ INJ SCH (18:30)
[2019-10-02] MEDS ORDERED: diphenhydrAMINE HCL 25 MG CAP ONE (19:23)
[2019-10-02] MEDS: DILTIAZEM HCL COATED BEADS 240 MG PO SCH (19:30)
[2019-10-02] MEDS: NITROGLYCERIN 0.4 MG/HR PATCH TOP SCH (19:30)
[2019-10-02] MEDS: METOPROLOL TARTRATE 50 MG TAB PO SCH (20:00)
--- NOTE | 2019-10-03 07:43 | RAD ---
Study: Single Frontal Radiograph of the Chest. Indication:chf exacerbation Comparison: October 02, 2019 Impression: Cardiomegaly with persistent central pulmonary vascular congestion and interstitial edema minimally improved compared to the prior. Viral or atypical pneumonia could give this appearance as well. No pleural effusion or pneumothorax. Continued follow-up recommended. Electronically signed by: Michael Mayfield MD 10/03/2019 7:41 AM CDT
[2019-10-03] MEDS ORDERED: diphenhydrAMINE HCL 25 MG CAP ONE (07:45)
[2019-10-03] MEDS: METOPROLOL TARTRATE 50 MG TAB PO SCH ×2 (07:53→21:01)
[2019-10-03] MEDS: NITROGLYCERIN 0.4 MG/HR PATCH TOP SCH (07:53)
[2019-10-03] MEDS: FUROSEMIDE INJ 40 MG/4 ML VIAL IV SCH ×2 (07:53→16:27)
[2019-10-03] MEDS ORDERED: NON-FORMULARY MEDICATION 1 EA MIS (Diphenhydramine Hcl [Benadryl] 50 MG) PO SCH (09:00)
[2019-10-03] MEDS: diphenhydrAMINE HCL 25 MG CAP PO SCH (09:02)
[2019-10-03] MEDS: DILTIAZEM HCL COATED BEADS 240 MG PO SCH (09:12)
[2019-10-03] MEDS: LEVALBUTEROL NEBS 1.25 MG/3 ML VIAL NEB SCH ×2 (16:00→20:15)
[2019-10-04] MEDS: LEVALBUTEROL NEBS 1.25 MG/3 ML VIAL NEB SCH (08:18)
--- NOTE | 2019-10-04 08:18 | RAD ---
EXAM DESCRIPTION: Chest,1 View CLINICAL HISTORY: 59 years Male, chf COMPARISON: Radiograph of the chest dated 10/03/2019. TECHNIQUE: AP radiograph of the chest was obtained. FINDINGS: Trachea is midline.The cardiomediastinal silhouette is moderately enlarged in size. Bilateral pulmonary vascular congestion. Airspace opacities in the bilateral lower lobes could represent pulmonary edema with possible associated effusions. IMPRESSION: Moderately enlarged cardiac silhouette with pulmonary vascular congestion. Airspace opacities in the bilateral lower lobes could represent pulmonary edema with possible associated effusions. Electronically signed by: Theresa Costello MD 10/04/2019 8:17 AM CDT
[2019-10-04] MEDS ORDERED: METOPROLOL TARTRATE 25 MG TAB ONE (08:37)
[2019-10-04] MEDS ORDERED: FUROSEMIDE 40 MG TAB PO SCH (09:00)
[2019-10-04] MEDS ORDERED: LOSARTAN POTASSIUM 100 MG TAB PO SCH (09:00)
[2019-10-04] MEDS ORDERED: POTASSIUM CHLORIDE 10 MEQ TAB PO SCH (09:00)
[2019-10-04] MEDS ORDERED: traMADol HCL 50 MG TAB PO SCH (09:00)
--- NOTE | 2019-10-04 09:11 | PN ---
SUPERVISING PHYSICIAN: Forrest Hendricks MD DATE: 10/03/19 SUBJECTIVE: The patient had good response to Lasix and nitro last night with good diuresis. He reports that his breathing is improving, although he still has some shortness of breath with exertion. He denies any chest pain, nausea or vomiting. He remains afebrile. OBJECTIVE: VITAL SIGNS: Temperature 97.8, pulse 83, blood pressure 140/80, respirations 18, saturation 94% on room air. I&Os show negative balance of 1500 with weight 127.8 kg. GENERAL: The patient is resting comfortably. He does not appear to be in any acute distress. CHEST: Chest sounds are much improved with better aeration, but diminished towards the bases. There are no rales or rhonchi noted. HEART: Slightly irregular rate and rhythm with atrial fibrillation noted on the monitor, but controlled ventricular rate. ABDOMEN: Obese, but soft and nontender. Positive bowel sounds. EXTREMITIES: No edema today. NEUROLOGIC: Alert and oriented times three. LABORATORY: Chemistry shows potassium 3.2, BUN 22, creatinine down to 1.31 compared to 1.56 on admission. Troponin remains at 0.06 on repeat, but he has not had any chest pain. We will plan to repeat in the morning. RADIOLOGY: Chest x-ray per radiologic interpretation showed cardiomegaly with persistent central pulmonary vascular congestion, interstitial edema minimally improved compared to prior exam. Viral atypical pneumonia could also give this appearance, but no pleural effusion or pneumothorax were noted. ASSESSMENT: 1. Acute decompensated heart failure with last echocardiogram noted 07/01/19 with ejection fraction 25% to 30%, etiology cardiomyopathy with elevated BNP on admission. The patient is already on a beta maite and an ARB. 2. Hypertensive urgency, exacerbating #1. 3. Atrial fibrillation with rapid ventricular response, now with a controlled ventricular rate on beta maite. 4. Supratherapeutic INR, returning to baseline levels with continuation of holding Coumadin administration. 5. Mild electrolyte imbalance with hypokalemia, persistent, but stable. 6. Renal insufficiency due to prerenal azotemia from Lasix with baseline creatinine around 1.1 with the patient showing improvement. 7. Elevated troponin, likely due to congestive heart failure and cardiomyopathy with no actual chest pains. 8. History of hypertension. 9. Hyperlipidemia. 10. History of chronic obstructive pulmonary disease without current signs or symptoms of exacerbation. 11. Degenerative joint disease with chronic back pain. PLAN: We will continue treatment of the congestive heart failure, acute decompensated, with pulmonary edema with Lasix for diuresis. His atrial fibrillation is now controlled. We will continue with his beta blockade and valsartan, but we will need to verify his home medications once those are available. I anticipate hopefully discharging tomorrow. We will get an ambulation study to determine if he needs oxygen on discharge. We will continue to diurese him to a dryer weight for discharge. We will repeat labs in the morning as well as PT/INR. We will hold his Coumadin again today as he is supratherapeutic. Until we can transition to outpatient management, we will continue to monitor and treat as needed. #[id number] [facility]
[2019-10-04] MEDS: diphenhydrAMINE HCL 25 MG CAP PO SCH (09:40)
[2019-10-04] MEDS ORDERED: POTASSIUM CHLORIDE 20 MEQ TAB PO ONE (09:40)
[2019-10-04] MEDS: METOPROLOL TARTRATE 50 MG TAB PO SCH (09:40)
[2019-10-04 10:08] VITALS: O2SAT 97
[2019-10-04 12:50] VITALS: BP 135/72; TEMP 97.9
--- NOTE | 2019-10-12 10:58 | DS ---
SUPERVISING PHYSICIAN: Forrest Hendricks MD ADMISSION DIAGNOSIS: 1. Acute decompensated heart failure with last echocardiogram noted 07/01/19 with ejection fraction 25% to 30%, etiology cardiomyopathy with elevated BNP on admission. 2. Hypertensive urgency, exacerbating #1. 3. Atrial fibrillation with rapid ventricular response. 4. Supratherapeutic INR, possibly related to taking his Coumadin prior to coming to the Emergency Room. 5. Mild electrolyte imbalance with hypokalemia. 6. Renal insufficiency with probable prerenal azotemia due to Lasix with baseline creatinine being around 1 to 1.1. 7. Elevated troponin, probably due to acute exacerbation of congestive heart failure with the patient denying any actual chest pains. 8. History of hypertension. 9. Hyperlipidemia. 10. History of chronic obstructive pulmonary disease with no actual signs of exacerbation. 11. Degenerative joint disease with chronic back pain. DISCHARGE DIAGNOSIS: 1. Acute decompensated heart failure with last echocardiogram noted 07/01/19 with ejection fraction 25% to 30%, etiology cardiomyopathy with elevated BNP on admission. The patient is already on a beta maite and an ARB. 2. Hypertensive urgency, exacerbating #1. 3. Atrial fibrillation with rapid ventricular response, now with a controlled ventricular rate on beta maite. 4. Supratherapeutic INR, returning to baseline levels with continuation of holding Coumadin administration. 5. Mild electrolyte imbalance with hypokalemia, persistent, but stable. 6. Renal insufficiency due to prerenal azotemia from Lasix with baseline creatinine around 1.1 with the patient showing improvement. 7. Elevated troponin, likely due to congestive heart failure and cardiomyopathy with no actual chest pains. 8. History of hypertension. 9. Hyperlipidemia. 10. History of chronic obstructive pulmonary disease without current signs or symptoms of exacerbation. 11. Degenerative joint disease with chronic back pain. REASON FOR HOSPITALIZATION: Mr. Lopez is a 59-year-old male patient of Dr. Cortez with a history of atrial fibrillation and chronic congestive heart failure. He has been admitted multiple times for CHF exacerbation and is on warfarin for anticoagulation. He has also been recently referred to cardiology for pacer/defibrillator placement, but has not been completed as of yet. He endorsed that his Lasix dosage had been changed recently, but he cannot remember if it was increased or decreased. The patient has very poor medical compliance, he does not remember his medications and states he forgets to take them periodically. He presented to the Emergency Room today with increasing shortness of breath and exertional dyspnea with orthopnea as well as bilateral lower extremity swelling. He endorses that the current episode is similar to previous episodes he was admitted for fluid overload. On initial presentation, he was showing atrial fibrillation with rapid ventricular response with a heart rate of 123. He was given IV Cardizem which did result in decrease in his heart rate and better control into the 70s. His initial labs did show a slight bump in his troponin at 0.06, but he was not really complaining of any chest pain other than just palpitations and some chest tightness with shortness of breath. The ER physician, Dr. Mars, consulted with Dr. 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 On last admission, he had several bumps in his troponin. He has been given Lasix and is now going to be admitted for continuation of treatment of acute congestive heart failure exacerbation with atrial fibrillation with rapid ventricular response. He was admitted in stable condition. LABORATORY: CBC showed white count 9,100, hemoglobin 16.4, hematocrit 49.9, placated 177,000, differential without a left shift. Coagulation studies showed initially PT 48.5 with INR 4.90. On discharge, his INR was 3.05 with PT 30.2. Chemistries on discharge showed sodium 142, potassium 3.2, BUN 26, creatinine 1.42. Liver functions were all within normal limits. Troponin still slightly elevated at 0.06. BNP on admission was 494. RADIOLOGY: Chest x-ray per radiologic interpretation showed cardiomegaly with central pulmonary vascular congestion. Please see that report for details. EKG showed atrial fibrillation with initial rapid ventricular response at 124. On discharge, the monitor was showing atrial fibrillation with heart rate of 82. He did diurese prior to discharge a little over 3.5 liters. Weight had gone from 127.6 to 127.8. HOSPITAL COURSE: Mr. Lopez was admitted on 10/02/19 with acute decompensated heart failure. He was diuresed as well as started on a Cardizem drip and resumed his metoprolol, which he had missed during the day prior to admission. We were able to get good control of his ventricular rate. He actually converted to a very controlled rhythm. Once his medications were re-started, he was having no chest pains, no shortness of breath, he diuresed a little over 3.5 liters and was showing good response to treatment. He was discharged to continue with outpatient management. DISCHARGE ASSESSMENT: VITAL SIGNS: Temperature 97.9, pulse 82, blood pressure 135/72, respirations 18, saturation 95%. GENERAL: The patient is resting comfortably, appears to be in no distress, alert and oriented times 3. CHEST: Improve with better aeration, just slightly diminished towards the bases, but no obvious rhonchi, wheezing or rales. HEART: Regular rate and rhythm as noted on monitor with controlled ventricular rate. ABDOMEN: Obese, but soft, nontender, positive bowel sounds. EXTREMITIES: No edema. NEUROLOGIC: Alert and oriented times 3. PLAN: Mr. Lopez was discharged on 10/04/19 with instructions to followup with Dr. Ma on 10/10/19 at 9 AM. He was to resume all his medications as prior to hospitalization. He was encouraged to continue with his medications as directed. He was to watch his weight and report any weight changes greater than 3 pounds in a 24 hour period. He was to restrict his fluids to less than 1500 mL today and return to the Emergency Department if he had any concerning symptoms. Diet on discharge was low sodium diet. Activity to increase as tolerated. Medications prescribed on discharge were none. He was to continue all previous medications. DISPOSITION: The patient was discharged home in stable condition. CONDITION ON DISCHARGE: Stable and improved. #[id number] [facility]
== END 2019-10-04 12:30 | disposition home or self-care (01) | DRG 292 ==
LOC: ER 13:17 → MS 16:56 → OBSVTOIN 16:56
PROVIDERS: ADMIT Nurse Practitioner Family; ATTEND Nurse Practitioner Acute Care
DX: I11.0 Hypertensive heart disease with heart failure (principal); I48.20 Chronic atrial fibrillation, unspecified; I50.43 Acute on chronic combined systolic (congestive) and diastolic (congestive) heart failure; I16.0 Hypertensive urgency; I42.9 Cardiomyopathy, unspecified; R79.1 Abnormal coagulation profile; E87.6 Hypokalemia; N28.9 Disorder of kidney and ureter, unspecified; R74.8 Abnormal levels of other serum enzymes; E78.5 Hyperlipidemia, unspecified; J44.9 Chronic obstructive pulmonary disease, unspecified; F17.210 Nicotine dependence, cigarettes, uncomplicated; G89.29 Other chronic pain; M54.5 Low back pain; M19.90 Unspecified osteoarthritis, unspecified site; I49.3 Ventricular premature depolarization; Z91.14 Patient's other noncompliance with medication regimen; Z79.01 Long term (current) use of anticoagulants; Z79.899 Other long term (current) drug therapy; Z88.0 Allergy status to penicillin; Z88.8 Allergy status to other drugs, medicaments and biological substances; Z82.49 Family history of ischemic heart disease and other diseases of the circulatory system; E66.9 Obesity, unspecified; Z68.38 Body mass index [BMI] 38.0-38.9, adult

== ENCOUNTER → 2020-01-16 | Outpatient (CLI) | payer MEDICARE | LOC: YCFC.O 11:10 | PROVIDERS: ATTEND Family Medicine | DX: I48.91 Unspecified atrial fibrillation (principal); I10 Essential (primary) hypertension; E78.5 Hyperlipidemia, unspecified; R53.83 Other fatigue; Z12.5 Encounter for screening for malignant neoplasm of prostate | CPT/HCPCS: 36415; 80053; 80061; 81001; 84443; 85025; 85610; G0103 ==

== ENCOUNTER 2020-01-24 16:19 | Emergency (ER) | payer MEDICARE ==
[2020-01-24] MEDS ORDERED: SODIUM CHLORIDE 0.9% (FLUSH) 10 ML SYG IV PRN (16:43)
[2020-01-24] MEDS ORDERED: ALBUTEROL SULFATE 2.5 MG/3 ML VIAL NEB ONE (16:47)
[2020-01-24] MEDS ORDERED: IPRATROPIUM/ALBUTEROL 3 ML VIAL NEB ONE (16:47)
--- NOTE | 2020-01-24 17:06 | ED.PDOC ---
History of Present Illness - General Chief Complaint: Cardiovascular Problem Stated Complaint: SOB, chest tightness, cough, BLE edema Time Seen by Provider: 01/24/20 16:43 Source: patient, RN notes reviewed, Vital Signs reviewed Exam Limitations: no limitations - History of Present Illness Initial Comments: Patient is a 59-year-old white male who presents with complaints of generalized fatigue and malaise as well as weakness. Additionally patient is complaining of lower extremity edema and shortness of breath. This is all been going on for 3 to 4 days but had improved since 2 days ago. 2 days ago patient started taking Lasix. Patient still not feeling well so decided to come on and. His shortness of breath is worse when lying flat or exerting himself. Patient feels better when he sits up. Mild cough. Nonproductive. Symptoms are moderate in intensity. Timing/Duration: other - 3 to 4 days Improving Factors: other Worsening Factors: other Associated Symptoms: cough, malaise, shortness of breath Allergies/Adverse Reactions: Allergies Lisinopril Allergy (Intermediate, Verified 01/24/20 17:02) Other tongue swelling Home Medications: Ambulatory Orders Furosemide [Lasix] 40 mg PO DAILY 08/26/17 DiphenhydrAMINE HCL [Benadryl] 50 mg PO DAILY 06/29/19 Metoprolol Tartrate 50 mg PO BID #0 07/03/19 Potassium Chloride Tab [Micro-K] 10 meq PO DAILY #30 tab 07/03/19 Diltiazem HCl Coated Beads [Cardizem LA] 240 mg PO DAILY #30 tab 07/29/19 Temazepam [Restoril] 15 mg PO BEDTIME PRN #30 cap 07/29/19 Warfarin Sodium [Coumadin] 4 mg PO DAILY #30 tab 07/29/19 Losartan Potassium [Cozaar] 100 mg PO DAILY 10/03/19 Tramadol HCl 50 mg PO DAILY 10/03/19 Albuterol Sulfate [Albuterol Sulfate Hfa] 2 puff INH Q6H #1 inhaler 01/24/20 Potassium Chloride [Klor-Con] 20 meq PO BID #10 tablet 01/24/20 predniSONE 60 mg PO DAILY #15 tab 01/24/20 Review of Systems - Review of Systems Constitutional: States: see HPI, malaise, weakness. Denies: chills, fever EENTM: States: no symptoms reported. Denies: eye pain, blurred vision, double vision Respiratory: States: see HPI, cough - Nonproductive, orthopnea, short of breath, wheezing. Denies: stridor Cardiology: States: no symptoms reported. Denies: chest pain, palpitations, syncope Gastrointestinal/Abdominal: States: no symptoms reported. Denies: abdominal pain, constipation, diarrhea, nausea, vomiting Genitourinary: States: no symptoms reported. Denies: dysuria, frequency Musculoskeletal: States: no symptoms reported. Denies: back pain, joint swelling, neck pain Skin: States: no symptoms reported. Denies: change in color, rash Neurological: States: see HPI, weakness. Denies: tingling, tremors Endocrine: States: no symptoms reported Hematologic/Lymphatic: States: no symptoms reported All other Systems: Reviewed and Negative, No Change from Baseline Past Medical History (General) - Patient Medical History Hx Seizures: No Hx Stroke: No Hx Dementia: No Hx Asthma: Yes Hx of COPD: No Hx Cardiac Disorders: Yes - Afib Hx Congestive Heart Failure: Yes Hx Pacemaker: No Hx Hypertension: Yes Hx Thyroid Disease: No Hx Diabetes: No Hx Gastroesophageal Reflux: No Hx Renal Disease: No Hx Cancer: No Hx of HIV: No Hx Hepatitis C: No Hx MRSA: No Surgical History: tonsillectomy, other - Vaccination History Hx Tetanus, Diphtheria Vaccination: No Hx Influenza Vaccination: Yes Hx Pneumococcal Vaccination: Yes Immunizations Up to Date: No - Social History Hx Tobacco Use: Yes Hx Chewing Tobacco Use: Yes Hx Alcohol Use: No Hx Substance Use: No Hx Substance Use Treatment: No Hx Depression: No Hx Physical Abuse: No Hx Emotional Abuse: No - Female History Patient is a Female of Child Bearing Age (10 -59 yrs old): No Patient : No Family Medical History - Family History Father Living Status: Age at (years of age): 34 Cause of : blunt head trama Hx Cardiac Disease: Yes Hx Family;Other: kidney disease Paternal Grandparents Living Status: Cause of : kidney disease Grandparents Living Status: Hx Cardiac Disease: Yes Mother Family History: Unknown Living Status: Still Living Hx Cardiac Disease: Yes Hx Family;Other: Dementia Physical Exam - Physical Exam General Appearance: Alert, Anxious, Well Developed, Well Hydrated, Well Nourished Eye Exam: bilateral normal Ears, Nose, Throat: hearing grossly normal, normal ENT inspection, normal pharynx Neck: non-tender, full range of motion, supple, normal inspection Respiratory: chest non-tender, respiratory distress - Mild, decreased breath sounds - Mild decreased breath sounds throughout with end expiratory wheezing and extended expiratory phase., wheezing - Expiratory Cardiovascular/Chest: normal peripheral pulses, regular rate, rhythm, no gallop, no murmur, other - 2+ lower extremity edema to his knees bilateral and equal Peripheral Pulses: radial,right: 2+, radial,left: 2+ Gastrointestinal/Abdominal: normal bowel sounds, non tender, soft, distended, other - Patient is obese Back Exam: normal inspection, no CVA tenderness, no vertebral tenderness Extremity: normal range of motion, non-tender, pedal edema - 2+ to his knees bilaterally, pitting. 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 01/24/20 19:35 Patient presents with complaints of shortness of breath and starting on Lasix secondary to peripheral edema. Patient denies any chest pain at any time. Cardiac work-up is relatively unremarkable except for an abnormal EKG. Troponin is negative. Seen is how this shortness of breath is been ongoing for more than 24 hours, highly unlikely that this is ACS/AMI or that this shortness of breath is anginal equivalent. Patient has a heart score 4. Patient was offered admission or transfer for admission he defers. He does not feel this is his heart. Discussion with patient of the risks and benefits and he voices understanding. Patient does have competency to make the decision not to be admitted. Patient markedly improved after his breathing treatments. Patient still smokes 1/4 pack of cigarettes a day. Plan on discharge home with a prescription for potassium for his hypokalemia secondary to the Lasix, a prescription for steroids and an albuterol inhaler. Patient is to follow-up with his PCP on Tuesday. He voices understanding and agreement with the plan of care. Patient has a follow-up appointment next week with cardiology as well as urology. Cody Isaac M.D. #[id number] - Results/Orders Results/Orders: EXAM DESCRIPTION: Chest,1 View CLINICAL HISTORY: 59 years Male dyspnea COMPARISON: 10/04/2019 FINDINGS: Cardiac enlargement which appears similar to the previous. No significant central pulmonary vascular congestion. No consolidation or pleural fluid. No evidence of afia pulmonary edema. No pneumothorax. IMPRESSION: Cardiac enlargement without evidence of acute process Electronically signed by: Cynthia Welch MD 01/24/2020 5:03 PM EKG performed 24 January 2020 at 1633 hrs.: Atrial fibrillation with PVCs at 60 bpm, left ventricular hypertrophy, cannot rule out a septal infarct, age indeterminate, ST and T wave abnormalities concerning for inferior lateral ischemia, abnormal EKG. No previous EKG available for comparison. 01/24/20 16:43 Sodium Chloride 0.9% (Flush) [Saline Flush Syringe] 10 ml IV PRN PRN 01/24/20 16:44 EKG Stat Pulse Ox Stat Pulse Oximetry Assessment DAILY Laboratory Results - last 24 hr 01/24/20 01/24/20 16:40 16:40 WBC 8.4 RBC 5.94 Hgb 17.8 Hct 52.6 H MCV 88.7 MCH 29.9 MCHC 33.8 RDW 16.1 H Plt Count 172 MPV 10.1 Absolute Neuts (auto) 5.70 Absolute Lymphs (auto) 1.50 Absolute Monos (auto) 0.70 Absolute Eos (auto) 0.40 Absolute Basos (auto) 0.10 Neutrophils % 67.7 Lymphocytes % 18.2 L Monocytes % 8.0 Eosinophils % 5.2 H Basophils % 0.9 PT 12.2 H INR 1.23 H PTT (SP) 23.9 Sodium 142 Potassium 3.2 L Chloride 102 Carbon Dioxide 32 H Anion Gap 11.2 L BUN 20 H Creatinine 1.46 H BUN/Creatinine Ratio 13.7 Random Glucose 83 Serum Osmolality 284.9 Calcium 9.3 Magnesium 1.8 Total Bilirubin 0.7 Direct Bilirubin 0.1 Indirect Bilirubin 0.6 AST 19 ALT 20 Alkaline Phosphatase 84 Creatine Kinase 51 CK-MB (CK-2) 2.1 CK-MB (CK-2) % Not Reportable Troponin I 0.03 B-Natriuretic Peptide 124.0 H Serum Total Protein 7.6 Albumin 3.9 Vital Signs 01/24/20 01/24/20 01/24/20 16:20 16:33 17:19 Temperature 98.4 F Pulse Rate Pulse Rate [ 53 L 53 L 57 L Pulse ox] Respiratory 18 18 18 Rate Blood Pressure 130/84 120/78 [L arm] O2 Sat by Pulse 97 96 Oximetry 01/24/20 01/24/20 01/24/20 17:45 18:19 19:19 Temperature Pulse Rate 54 L Pulse Rate [ 53 L 52 L Pulse ox] Respiratory 20 18 18 Rate Blood Pressure 137/87 142/92 [L arm] O2 Sat by Pulse 93 L 95 96 Oximetry Departure - Departure Clinical Impression: Hypokalemia COPD (chronic obstructive pulmonary disease) Qualifiers: COPD type: unspecified COPD Qualified Code(s): J44.9 - Chronic obstructive pulmonary disease, unspecified Dyspnea Qualifiers: Dyspnea type: shortness of breath Qualified Code(s): R06.02 - Shortness of breath Time of Disposition: 19:41 Disposition: Discharge to Home or Self Care Condition: Good Departure Forms: ED Discharge - Pt. Copy, Patient Portal Self Enrollment Instructions: Chronic Obstructive Pulmonary Disease (COPD) (DC), Hypokalemia (DC), Shortness of Breath (Dyspnea) (DC) Diet: resume usual diet Activity: increase activity as tolerated Referrals: Mendoza Ma MD [Primary Care Provider] - 1-5 Days Prescriptions: Albuterol Sulfate [Albuterol Sulfate Hfa] 2 puff INH Q6H #1 inhaler Potassium Chloride [Klor-Con] 20 meq PO BID #10 tablet predniSONE 60 mg PO DAILY #15 tab Home Medications: Ambulatory Orders Furosemide [Lasix] 40 mg PO DAILY 08/26/17 DiphenhydrAMINE HCL [Benadryl] 50 mg PO DAILY 06/29/19 Metoprolol Tartrate 50 mg PO BID #0 07/03/19 Potassium Chloride Tab [Micro-K] 10 meq PO DAILY #30 tab 07/03/19 Diltiazem HCl Coated Beads [Cardizem LA] 240 mg PO DAILY #30 tab 07/29/19 Temazepam [Restoril] 15 mg PO BEDTIME PRN #30 cap 07/29/19 Warfarin Sodium [Coumadin] 4 mg PO DAILY #30 tab 07/29/19 Losartan Potassium [Cozaar] 100 mg PO DAILY 10/03/19 Tramadol HCl 50 mg PO DAILY 10/03/19 Albuterol Sulfate [Albuterol Sulfate Hfa] 2 puff INH Q6H #1 inhaler 01/24/20 Potassium Chloride [Klor-Con] 20 meq PO BID #10 tablet 01/24/20 predniSONE 60 mg PO DAILY #15 tab 01/24/20
[2020-01-24] MEDS ORDERED: POTASSIUM CHLORIDE 20 MEQ TAB PO ONE (19:49)
[2020-01-24] MEDS ORDERED: predniSONE 20 MG TAB PO ONE (19:50)
[2020-01-24 19:56] VITALS: BP 140/101; TEMP 97.6; O2SAT 98
== END 2020-01-24 19:56 | disposition home or self-care (01) ==
LOC: ER 16:19
DX: J44.9 Chronic obstructive pulmonary disease, unspecified (principal); E87.6 Hypokalemia; I48.91 Unspecified atrial fibrillation; I49.3 Ventricular premature depolarization; I50.9 Heart failure, unspecified; I11.0 Hypertensive heart disease with heart failure; Z87.891 Personal history of nicotine dependence; Z79.01 Long term (current) use of anticoagulants; Z79.899 Other long term (current) drug therapy; Z88.8 Allergy status to other drugs, medicaments and biological substances
CPT/HCPCS: 36415; 71045; 80048; 80076; 82550; 82553; 83880; 84484; 85025; 85610; 85730; 93005; 94640; J7512; J7611; J7620